=== PATIENT | female | born 1990 | race Caucasian/White ===

== ENCOUNTER 2020-11-08 15:05 | Inpatient (IN) | payer BC ==
[~2020-11-08] VITALS: Ht 170.2 cm; Wt 116.0 kg
--- NOTE | 2020-11-08 18:30 | NUR ---
Patient arrived from [facility] via ambulance and was transferred to hospital bed w/o problem. She is A&O x3, BEAVERS and is appropriate. RT was present to set up Bipap 90% and the patient is sating in the low 90's.
[2020-11-08] MEDS ORDERED: potassium Cl 20 mEq SR tablet PO PRN (18:40)
[2020-11-08] MEDS ORDERED: acetaminophen 325mg tablet PO PRN (18:40)
[2020-11-08] MEDS ORDERED: morphine 4 MG/ML inj SYRINge IV PRN (18:40)
[2020-11-08 18:45] VITALS: BP 100/56
[2020-11-08 19:00] VITALS: BP 141/105
[2020-11-08] MEDS ORDERED: ESCI-8 PO (19:07)
[2020-11-08] MEDS ORDERED: [UNRECOGNIZED DRUG - CODE] PO (19:07)
[2020-11-08] MEDS ORDERED: MONT10TA32 PO (19:07)
[2020-11-08] MEDS ORDERED: DOXE10CA2 PO (19:07)
[2020-11-08] MEDS ORDERED: PROP20TA6 PO (19:07)
[2020-11-08 19:36] LABS: ABG BASE EXCESS 2.9 mmol/L (-2.0-2.0); ABG HCO3 26.1 mmol/L (22.0-26.0); ABG OXYGEN SATURATION 91.5 % (94-97); ABG PCO2 (T) 35.2 mmHg (32.0-45.0); ABG PO2 (T) 56.5 mmHg (75.0-100.0); ALLEN'S TEST POSITIVE; FCOHb 0.1 % (0.0-3.9); FMetHb 0.2 % (0.0-1.5); FO2Hb 91.2 % (94-97); PATIENT TEMPERATURE 36.6; TOTAL HEMOGLOBIN 14.9 G/dl (12.0-16.0)
[2020-11-08 19:59] LABS: BASOPHILS % (AUTO) 0.1 % (0-1); HEMOGLOBIN 14.8 g/dl (12.0-16.0); LYMPHOCYTES # (AUTO) 0.6 X10'3 (1.1-4.8); LYMPHOCYTES % (AUTO) 5.4 % (21-51); MONOCYTES # (AUTO) 0.3 X10'3 (0-0.9); MONOCYTES % (AUTO) 2.7 % (2-12)
[2020-11-08 20:00] VITALS: BP 151/90
[2020-11-08 20:01] LABS: EOSINOPHILS % (AUTO) 0.3 % (0-6); MEAN CORPUSCULAR HEMOGLOBIN 28.6 PG (27.0-31.0); MEAN CORPUSCULAR HGB CONC 33.7 g/dL (33.0-36.5); MEAN CORPUSCULAR VOLUME 84.7 FL (78-98); MEAN PLATELET VOLUME 8.1 FL (7.4-10.4); NEUTROPHILS # (AUTO) 9.8 X10'3 (1.8-7.7); NEUTROPHILS % (AUTO) 91.5 % (42-75); PLATELET COUNT 625 X10'3 (140-440); RED CELL DISTRIBUTION WIDTH 13.2 % (11.5-14.5); WHITE BLOOD COUNT 10.7 X10'3 (4.5-11.0)
[2020-11-08 21:00] VITALS: BP 166/88
[2020-11-08] MEDS ORDERED: dexamethasone 4mg/ml inj IV SCH (21:00)
[2020-11-08] MEDS: dexamethasone 6 MG in NS 50ml IV soln IV SCH (21:30)
[2020-11-08 22:00] VITALS: BP 142/76
[2020-11-08 23:00] VITALS: BP 142/76
[2020-11-09] VITALS (21 sets, daily range): BP systolic 95–171; BP diastolic 37–85
--- NOTE | 2020-11-09 06:17 | NUR ---
Problems reprioritized. Patient report given, questions answered & plan of care reviewed with GISELA Snow.
--- NOTE | 2020-11-09 06:20 | NUR ---
Patient in room CICU 2006. I have received report from Serina HIGGINS and had the opportunity to ask questions and assume patient care.
[2020-11-09 06:24] LABS: BASOPHILS % (AUTO) 0 % (0-1); EOSINOPHILS # (AUTO) 0.1 X10'3 (0-0.9); HEMATOCRIT 40.3 % (35.0-45.0); HEMOGLOBIN 13.5 g/dl (12.0-16.0); LYMPHOCYTES # (AUTO) 0.8 X10'3 (1.1-4.8); LYMPHOCYTES % (AUTO) 6.5 % (21-51); MEAN CORPUSCULAR HEMOGLOBIN 28.5 PG (27.0-31.0); MEAN CORPUSCULAR HGB CONC 33.5 g/dL (33.0-36.5); MEAN PLATELET VOLUME 7.9 FL (7.4-10.4); MONOCYTES # (AUTO) 0.4 X10'3 (0-0.9); MONOCYTES % (AUTO) 3.3 % (2-12); NEUTROPHILS # (AUTO) 11.1 X10'3 (1.8-7.7); NEUTROPHILS % (AUTO) 89.2 % (42-75); PLATELET COUNT 517 X10'3 (140-440); RED BLOOD COUNT 4.74 X10'6 (4.20-5.60); RED CELL DISTRIBUTION WIDTH 13.2 % (11.5-14.5); WHITE BLOOD COUNT 12.4 X10'3 (4.5-11.0)
[2020-11-09 06:36] LABS: ALANINE AMINOTRANSFERASE 43 U/L (12-78); ALBUMIN 2.4 G/DL (3.4-5.0); ALBUMIN/GLOBULIN RATIO 0.6 (1.1-1.5); ALKALINE PHOSPHATASE 63 IU/L (46-116); ANION GAP 7 (8-16); ASPARTATE AMINO TRANSFERASE 16 U/L (10-37); BILIRUBIN,TOTAL 0.5 MG/DL (0.1-1.0); BLOOD UREA NITROGEN 15 MG/DL (7-18); BUN/CREATININE RATIO 23.8 (6.6-38.0); CALCIUM 8.9 MG/DL (8.5-10.1); CHLORIDE 104 MMOL/L (99-107); CREATININE 0.63 MG/DL (0.40-0.90); GLUCOSE 111 MG/DL (70-104); MAGNESIUM 2.8 MG/DL (1.5-2.4); POTASSIUM 4.4 MMOL/L (3.5-5.1); SODIUM 137 MMOL/L (135-145); TOTAL CARBON DIOXIDE 26.2 MMOL/L (24-32); TOTAL PROTEIN 6.6 G/DL (6.4-8.2); eGFR > 90 ML/MIN
[2020-11-09] MEDS: K, MAG and/or Phos replacement - Verify level? MC SCH (08:00)
--- NOTE | 2020-11-09 08:14 | NUR ---
Commode Pt out of bed to commode. O2 sats down to low 80 during process. Assisted back to bed and gradually recovered to high 80s/low 90s.
[2020-11-09] MEDS: dexamethasone 6 MG in NS 50ml IV soln IV SCH ×3 (08:23→19:40)
[2020-11-09 09:13] LABS: PLATELET ESTIMATE INCREASED; TOTAL CELLS COUNTED 100
--- NOTE | 2020-11-09 10:04 | NUR ---
Meal Pt requested protein drink. Ensure provided, she consumed the 250 cc content.
--- NOTE | 2020-11-09 14:00 | NUR ---
Prone Pt got up to commode and returned to bed in prone position per her request. Nicolle RT assisted with proning. Tolerating well. no BP cuff on in prone position at this time. CN aware and agreed as pt is stable.
--- NOTE | 2020-11-09 14:49 | NUR ---
Tube Feed Attempted x [address] corpak unsuccessfully. AMELIE attempted one of those times. Will discuss with . Addendum: 11/09/20 at 1522 by Edy Olmos RN wrong pt
--- NOTE | 2020-11-09 17:56 | NUR ---
Shift note; Pt remains prone at her request. She was up to the commode about 4 PM and then back to bed prone. Phone basket turner provided, comfortable. Did not want ensure drink now but will do it later when up. Seems in good spirits for condition.
[2020-11-09] MEDS: propranolol 10mg tablet PO SCH (19:39)
[2020-11-09] MEDS: lactose-reduced food (Ensure Enlive) - 237ml bottle PO SCH (19:44)
[2020-11-10] VITALS (24 sets, daily range): BP systolic 109–145; BP diastolic 51–92
--- NOTE | 2020-11-10 06:15 | NUR ---
Report given Kvng/RN
[2020-11-10 06:26] LABS: EOSINOPHILS % (AUTO) 0.2 % (0-6); MEAN CORPUSCULAR VOLUME 82.9 FL (78-98); MEAN PLATELET VOLUME 8.2 FL (7.4-10.4); NEUTROPHILS # (AUTO) 12.6 X10'3 (1.8-7.7)
[2020-11-10 06:28] LABS: BASOPHILS # (AUTO) 0.2 X10'3 (0-0.2); BASOPHILS % (AUTO) 1.3 % (0-1); D-DIMER 0.75 MG/L FEU (0-0.50); HEMATOCRIT 40.6 % (35.0-45.0); HEMOGLOBIN 13.8 g/dl (12.0-16.0); MEAN CORPUSCULAR HEMOGLOBIN 28.2 PG (27.0-31.0); MONOCYTES # (AUTO) 0.8 X10'3 (0-0.9); MONOCYTES % (AUTO) 5.2 % (2-12); NEUTROPHILS % (AUTO) 86.3 % (42-75); PLATELET COUNT 624 X10'3 (140-440); RED CELL DISTRIBUTION WIDTH 13.3 % (11.5-14.5); WHITE BLOOD COUNT 14.6 X10'3 (4.5-11.0)
[2020-11-10 06:56] LABS: ALANINE AMINOTRANSFERASE 45 U/L (12-78); ALBUMIN 2.4 G/DL (3.4-5.0); ALBUMIN/GLOBULIN RATIO 0.6 (1.1-1.5); ALKALINE PHOSPHATASE 62 IU/L (46-116); ANION GAP 10 (8-16); ASPARTATE AMINO TRANSFERASE 13 U/L (10-37); BILIRUBIN,TOTAL 0.4 MG/DL (0.1-1.0); BLOOD UREA NITROGEN 16 MG/DL (7-18); BUN/CREATININE RATIO 29.1 (6.6-38.0); CALCIUM 8.9 MG/DL (8.5-10.1); CHLORIDE 102 MMOL/L (99-107); CREATININE 0.55 MG/DL (0.40-0.90); GLUCOSE 113 MG/DL (70-104); POTASSIUM 4.2 MMOL/L (3.5-5.1); SODIUM 139 MMOL/L (135-145); TOTAL CARBON DIOXIDE 26.7 MMOL/L (24-32); TOTAL PROTEIN 6.6 G/DL (6.4-8.2); eGFR > 90 ML/MIN
[2020-11-10] MEDS: NORETHINDRONE ETHINYL ESTRAD PO SCH (08:00)
[2020-11-10] MEDS: montelukast 10mg tablet PO SCH (08:28)
[2020-11-10] MEDS: propranolol 10mg tablet PO SCH ×2 (08:28→20:11)
[2020-11-10] MEDS: ESCITALOPRAM OXALATE 5 MG TABLET PO SCH (08:28)
[2020-11-10] MEDS: dexamethasone 6 MG in NS 50ml IV soln IV SCH ×3 (08:28→20:11)
[2020-11-10] MEDS: enoxaparin 40mg/0.4ml syringe SUBCUT SCH ×2 (08:30→20:11)
[2020-11-10] MEDS: lactose-reduced food (Ensure Enlive) - 237ml bottle PO SCH ×3 (08:40→17:30)
[2020-11-10 10:37] LABS: TOTAL CELLS COUNTED 100
[2020-11-10 10:38] LABS: PLATELET ESTIMATE INCREASED
[2020-11-10 10:39] LABS: LARGE PLATELETS FEW
[2020-11-10 10:43] LABS: TOXIC GRANULATION 1+; TOXIC VACUOLATION FEW
[2020-11-10 10:44] LABS: SMUDGE CELLS FEW
[2020-11-11] VITALS (23 sets, daily range): BP systolic 122–156; BP diastolic 6–90
[2020-11-11] MEDS: morphine 2 MG/ML inj. syringe IV PRN ×4 (03:38→20:13)
[2020-11-11 06:08] LABS: D-DIMER 0.41 MG/L FEU (0-0.50)
[2020-11-11] MEDS: NORETHINDRONE ETHINYL ESTRAD PO SCH (08:00)
[2020-11-11] MEDS: propranolol 10mg tablet PO SCH ×2 (08:09→19:55)
[2020-11-11] MEDS: enoxaparin 40mg/0.4ml syringe SUBCUT SCH ×2 (08:09→19:56)
[2020-11-11] MEDS: lactose-reduced food (Ensure Enlive) - 237ml bottle PO SCH ×3 (08:10→18:06)
[2020-11-11] MEDS: montelukast 10mg tablet PO SCH (08:10)
[2020-11-11] MEDS: dexamethasone 6 MG in NS 50ml IV soln IV SCH ×3 (08:10→20:21)
[2020-11-11] MEDS: ESCITALOPRAM OXALATE 5 MG TABLET PO SCH (08:10)
[2020-11-11] MEDS: K, MAG and/or Phos replacement - Verify level? MC SCH (08:43)
[2020-11-11] MEDS: aspirin 81mg, enteric-coated 1 TAB TABLET.DR PO SCH (13:27)
--- NOTE | 2020-11-11 13:56 | NUR ---
Initial: Pt admit for respiratory distress and COVID PNA, on BiPAP per MD notes. Currently on a full liquid diet and eating poorly with mostly refusing meals though documented to have consumed 75% of dinner 11/10. Pt now receiving Ensure Enlive TID, documented with 100% PO intake of ONS meeting roughly 62% minimum estimated energy needs and 69% minimum estimated protein needs using IBW +10% to calculate estimated nutrient needs given morbid obesity. Limited nutrition interventions a this time given current diet order. LBM 11/07 with PRN bowel care available. D/w dietary to send prune juice with next meal to assist with bowel regularity. Will continue to follow closely and make recommendations as appropriate. Recommendations: 1) Advance to regular diet as medically indicated 2) Ensure Enlive TID 3) Consider supplemental EN if unable to advance PO diet and/or PO intake of meals does not improve 4) Routine bowel care 5) Weekly scaled weights Addendum: 11/11/20 at [address] Amended: Links added.
[2020-11-12] VITALS (24 sets, daily range): BP systolic 79–154; BP diastolic 52–77
[2020-11-12 06:29] LABS: D-DIMER 0.32 MG/L FEU (0-0.50)
[2020-11-12] MEDS: K, MAG and/or Phos replacement - Verify level? MC SCH (08:00)
[2020-11-12] MEDS: dexamethasone 6 MG in NS 50ml IV soln IV SCH ×3 (08:39→20:47)
[2020-11-12] MEDS: aspirin 81mg, enteric-coated 1 TAB TABLET.DR PO SCH (08:39)
[2020-11-12] MEDS: lactose-reduced food (Ensure Enlive) - 237ml bottle PO SCH ×3 (08:39→18:00)
[2020-11-12] MEDS: enoxaparin 40mg/0.4ml syringe SUBCUT SCH ×2 (08:39→20:25)
[2020-11-12] MEDS ORDERED: DEXMEDETOMIDINE 400MCG in NORMAL SALINE 100ml IV SCH (11:50)
[2020-11-12] MEDS: dexmedetomidine/D5W 100mL 100 ML IV SCH ×2 (13:42→21:36)
--- NOTE | 2020-11-12 18:20 | NUR ---
Patient in room CICU 2006. I have received report from GISELA Calderon and had the opportunity to ask questions and assume patient care.
[2020-11-13] VITALS (24 sets, daily range): BP systolic 102–139; BP diastolic 50–81
[2020-11-13] MEDS: ondansetron/PF 4mg/2ml inj IV PRN (00:23)
[2020-11-13] MEDS: magnesium hydroxide 30ml (MOM) UD suspension PO PRN (02:15)
[2020-11-13] MEDS: dexmedetomidine/D5W 100mL 100 ML IV SCH ×4 (04:50→19:14)
--- NOTE | 2020-11-13 05:00 | NUR ---
Patient in bed resting quietly, c/o heartburn meds was given as ordered tolerated well. Able to repositioned self in bed. Use bed commode X2 during the night. Drink water. IV ABT in progress, no adverse reaction noted. Safety measures and comfort maintained. Will continue to monitor.
--- NOTE | 2020-11-13 06:33 | NUR ---
Problems reprioritized. Patient report given, questions answered & plan of care reviewed with GISELA Churchill.
[2020-11-13 07:03] LABS: D-DIMER 0.28 MG/L FEU (0-0.50)
[2020-11-13 07:30] LABS: C-REACTIVE PROTEIN 0.75 MG/DL (0.0-0.5)
[2020-11-13] MEDS: K, MAG and/or Phos replacement - Verify level? MC SCH (08:00)
[2020-11-13] MEDS: enoxaparin 40mg/0.4ml syringe SUBCUT SCH ×2 (08:35→19:15)
[2020-11-13] MEDS: dexamethasone 6 MG in NS 50ml IV soln IV SCH ×3 (08:35→20:00)
[2020-11-13] MEDS: aspirin 81mg, enteric-coated 1 TAB TABLET.DR PO SCH (08:36)
[2020-11-13] MEDS: lactose-reduced food (Ensure Enlive) - 237ml bottle PO SCH ×3 (08:36→18:00)
[2020-11-13 09:29] LABS: BASOPHILS # (AUTO) 0.2 X10'3 (0-0.2); EOSINOPHILS % (AUTO) 0 % (0-6); HEMATOCRIT 42.1 % (35.0-45.0); HEMOGLOBIN 14.2 g/dl (12.0-16.0); LYMPHOCYTES # (AUTO) 1.2 X10'3 (1.1-4.8); LYMPHOCYTES % (AUTO) 7.4 % (21-51); MEAN CORPUSCULAR HEMOGLOBIN 28.4 PG (27.0-31.0); MEAN CORPUSCULAR HGB CONC 33.8 g/dL (33.0-36.5); MEAN CORPUSCULAR VOLUME 83.9 FL (78-98); MEAN PLATELET VOLUME 8.8 FL (7.4-10.4); MONOCYTES # (AUTO) 0.9 X10'3 (0-0.9); MONOCYTES % (AUTO) 5.1 % (2-12); NEUTROPHILS # (AUTO) 14.4 X10'3 (1.8-7.7); NEUTROPHILS % (AUTO) 86.5 % (42-75); PLATELET COUNT 530 X10'3 (140-440); RED BLOOD COUNT 5.02 X10'6 (4.20-5.60); RED CELL DISTRIBUTION WIDTH 13.3 % (11.5-14.5); WHITE BLOOD COUNT 16.7 X10'3 (4.5-11.0)
[2020-11-13 09:49] LABS: ALANINE AMINOTRANSFERASE 54 U/L (12-78); ALBUMIN 2.8 G/DL (3.4-5.0); ALBUMIN/GLOBULIN RATIO 0.7 (1.1-1.5); ALKALINE PHOSPHATASE 65 IU/L (46-116); ANION GAP 12 (8-16); ASPARTATE AMINO TRANSFERASE 12 U/L (10-37); BILIRUBIN,TOTAL 0.6 MG/DL (0.1-1.0); BLOOD UREA NITROGEN 23 MG/DL (7-18); BUN/CREATININE RATIO 36.5 (6.6-38.0); CHLORIDE 104 MMOL/L (99-107); CREATININE 0.63 MG/DL (0.40-0.90); GLUCOSE 117 MG/DL (70-104); POTASSIUM 4.6 MMOL/L (3.5-5.1); SODIUM 142 MMOL/L (135-145); TOTAL CARBON DIOXIDE 25.9 MMOL/L (24-32); TOTAL PROTEIN 6.7 G/DL (6.4-8.2); eGFR > 90 ML/MIN
--- NOTE | 2020-11-13 10:32 | NUR ---
pt up to bsc she desat to 63 on 85%. fio2 increased to 100% with activity. fio2 titrated down to 90% for recovery
[2020-11-13 12:10] LABS: PLATELET ESTIMATE INCREASED; TOTAL CELLS COUNTED 100
[2020-11-13 12:11] LABS: BURR CELLS FEW
--- NOTE | 2020-11-13 13:21 | NUR ---
pt sat up in chair for approx 1.5 hours and ate lunch. pt assisted back to bed stand by assist
--- NOTE | 2020-11-13 18:15 | NUR ---
Patient in room CICU 2006. I have received report from Kerline HIGGINS and had the opportunity to ask questions and assume patient care.
[2020-11-13] MEDS: polyethylene glycol 3350 17gm powd pack PO SCH (20:00)
[2020-11-14] VITALS (24 sets, daily range): BP systolic 101–141; BP diastolic 27–85
[2020-11-14] MEDS: acetaminophen 325mg tablet PO PRN (02:04)
[2020-11-14] MEDS ORDERED: pantoprazole 40 MG vial IV ONE (02:30)
--- NOTE | 2020-11-14 02:30 | NUR ---
Patient complaints of heartburn, called to Dr. De Luna regarding to patient's condition. Dr. De Luna gave a telephone order of one time does 40mg of Protonix IV.
[2020-11-14] MEDS ORDERED: mag hydrox/Alum hydrox/simeth 30ml oral suspension PO PRN (04:00)
[2020-11-14] MEDS: dexmedetomidine/D5W 100mL 100 ML IV SCH ×3 (05:04→20:21)
--- NOTE | 2020-11-14 06:24 | NUR ---
Problems reprioritized. Patient report given, questions answered & plan of care reviewed with Kaleigh HIGGINS at bedside.
[2020-11-14 07:07] LABS: HEMATOCRIT 42.3 % (35.0-45.0); HEMOGLOBIN 14.3 g/dl (12.0-16.0); MEAN CORPUSCULAR HGB CONC 33.7 g/dL (33.0-36.5); WHITE BLOOD COUNT 19.1 X10'3 (4.5-11.0)
[2020-11-14 07:09] LABS: BASOPHILS % (AUTO) 0.2 % (0-1); EOSINOPHILS % (AUTO) 0 % (0-6); LYMPHOCYTES # (AUTO) 1.1 X10'3 (1.1-4.8); LYMPHOCYTES % (AUTO) 5.5 % (21-51); MEAN CORPUSCULAR VOLUME 83.2 FL (78-98); MEAN PLATELET VOLUME 9.1 FL (7.4-10.4); MONOCYTES # (AUTO) 1.1 X10'3 (0-0.9); MONOCYTES % (AUTO) 5.6 % (2-12); NEUTROPHILS # (AUTO) 16.9 X10'3 (1.8-7.7); NEUTROPHILS % (AUTO) 88.7 % (42-75); PLATELET COUNT 459 X10'3 (140-440); RED BLOOD COUNT 5.08 X10'6 (4.20-5.60); RED CELL DISTRIBUTION WIDTH 13.2 % (11.5-14.5)
[2020-11-14] MEDS: lactose-reduced food (Ensure Enlive) - 237ml bottle PO SCH ×3 (08:00→18:52)
[2020-11-14] MEDS: K, MAG and/or Phos replacement - Verify level? MC SCH (08:00)
[2020-11-14 08:12] LABS: ALANINE AMINOTRANSFERASE 65 U/L (12-78); ALBUMIN 2.7 G/DL (3.4-5.0); ALBUMIN/GLOBULIN RATIO 0.7 (1.1-1.5); ALKALINE PHOSPHATASE 64 IU/L (46-116); ANION GAP 11 (8-16); ASPARTATE AMINO TRANSFERASE 20 U/L (10-37); BILIRUBIN,TOTAL 0.5 MG/DL (0.1-1.0); BLOOD UREA NITROGEN 22 MG/DL (7-18); BUN/CREATININE RATIO 34.4 (6.6-38.0); CALCIUM 8.7 MG/DL (8.5-10.1); CHLORIDE 102 MMOL/L (99-107); CREATININE 0.64 MG/DL (0.40-0.90); GLUCOSE 117 MG/DL (70-104); POTASSIUM 4.4 MMOL/L (3.5-5.1); SODIUM 138 MMOL/L (135-145); TOTAL CARBON DIOXIDE 25.5 MMOL/L (24-32); TOTAL PROTEIN 6.5 G/DL (6.4-8.2); eGFR > 90 ML/MIN
--- NOTE | 2020-11-14 08:19 | NUR ---
Reassessment: Pt remains on BiPAP and Full liquid diet, continues w/ poor PO intake. Avg 25% x 7 meals and 65% x 8 ONS not meeting needs. Pt may benefit from supplemental EN feeding if unable to advance diet. Limited nutrition interventions a this time given current diet order. LB 11/07 receiving routine and PRN bowel care. Pt also noted to be complaining of heartburn. Will continue to follow closely and make recommendations as appropriate. Recommendations: 1) Advance to regular diet as medically indicated 2) Ensure Enlive TID 3) Consider supplemental EN if unable to advance PO diet and/or PO intake of meals does not improve 4) Routine bowel care 5) Weekly scaled weights Addendum: 11/14/20 at [address] Amended: Links added.
[2020-11-14 08:39] LABS: PLATELET ESTIMATE INCREASED; TOTAL CELLS COUNTED 100
[2020-11-14 08:53] LABS: D-DIMER 0.46 MG/L FEU (0-0.50)
[2020-11-14] MEDS: aspirin 81mg, enteric-coated 1 TAB TABLET.DR PO SCH (08:58)
[2020-11-14] MEDS: dexamethasone 6 MG in NS 50ml IV soln IV SCH ×3 (09:06→20:21)
[2020-11-14] MEDS: enoxaparin 40mg/0.4ml syringe SUBCUT SCH ×2 (09:06→19:56)
[2020-11-14 13:13] LABS: ABG BASE EXCESS 0.1 mmol/L (-2.0-2.0); ABG HCO3 22.2 mmol/L (22.0-26.0); ABG OXYGEN SATURATION 92.3 % (94-97); ABG PCO2 (T) 29.5 mmHg (32.0-45.0); ABG PO2 (T) 61.7 mmHg (75.0-100.0); ALLEN'S TEST POSITIVE; FMetHb 0.3 % (0.0-1.5); PATIENT TEMPERATURE 36.8; RESPIRATORY RATE 12 b/min; TOTAL HEMOGLOBIN 15.7 G/dl (12.0-16.0)
[2020-11-14] MEDS: polyethylene glycol 3350 17gm powd pack PO SCH (20:20)
[2020-11-15] VITALS (24 sets, daily range): BP systolic 98–152; BP diastolic 61–86
[2020-11-15] MEDS: dexmedetomidine/D5W 100mL 100 ML IV SCH ×4 (03:02→19:10)
[2020-11-15] MEDS: lactose-reduced food (Ensure Enlive) - 237ml bottle PO SCH ×3 (08:00→18:00)
[2020-11-15] MEDS: K, MAG and/or Phos replacement - Verify level? MC SCH (08:00)
[2020-11-15] MEDS: aspirin 81mg, enteric-coated 1 TAB TABLET.DR PO SCH (08:00)
[2020-11-15] MEDS: dexamethasone 6 MG in NS 50ml IV soln IV SCH ×3 (08:17→20:12)
[2020-11-15] MEDS: enoxaparin 40mg/0.4ml syringe SUBCUT SCH ×2 (08:18→19:10)
[2020-11-15 08:46] LABS: ABG BASE EXCESS 1.4 mmol/L (-2.0-2.0); ABG HCO3 23.6 mmol/L (22.0-26.0); ABG OXYGEN SATURATION 84.6 % (94-97); ABG PCO2 (T) 30.1 mmHg (32.0-45.0); ABG PO2 (T) 44.5 mmHg (75.0-100.0); ALLEN'S TEST POSITIVE; FCOHb 0.2 % (0.0-3.9); FMetHb 0.2 % (0.0-1.5); FO2Hb 84.3 % (94-97); PATIENT TEMPERATURE 36.3; RESPIRATORY RATE 12 b/min; TIDAL VOLUME 684 mL; TOTAL HEMOGLOBIN 15.8 G/dl (12.0-16.0)
[2020-11-15 09:17] LABS: BASOPHILS # (AUTO) 0.1 X10'3 (0-0.2); BASOPHILS % (AUTO) 0.2 % (0-1); EOSINOPHILS # (AUTO) 0.1 X10'3 (0-0.9); EOSINOPHILS % (AUTO) 0.2 % (0-6); HEMATOCRIT 45.2 % (35.0-45.0); HEMOGLOBIN 14.9 g/dl (12.0-16.0); LYMPHOCYTES # (AUTO) 1.4 X10'3 (1.1-4.8); LYMPHOCYTES % (AUTO) 5.5 % (21-51); MEAN CORPUSCULAR HEMOGLOBIN 27.8 PG (27.0-31.0); MEAN CORPUSCULAR HGB CONC 33.1 g/dL (33.0-36.5); MEAN PLATELET VOLUME 8.7 FL (7.4-10.4); MONOCYTES # (AUTO) 1.8 X10'3 (0-0.9); MONOCYTES % (AUTO) 7.4 % (2-12); NEUTROPHILS # (AUTO) 21.5 X10'3 (1.8-7.7); NEUTROPHILS % (AUTO) 86.7 % (42-75); PLATELET COUNT 459 X10'3 (140-440); RED BLOOD COUNT 5.38 X10'6 (4.20-5.60); RED CELL DISTRIBUTION WIDTH 13.1 % (11.5-14.5); WHITE BLOOD COUNT 24.8 X10'3 (4.5-11.0)
[2020-11-15 09:26] LABS: ALANINE AMINOTRANSFERASE 89 U/L (12-78); ALBUMIN 2.6 G/DL (3.4-5.0); ALBUMIN/GLOBULIN RATIO 0.6 (1.1-1.5); ALKALINE PHOSPHATASE 73 IU/L (46-116); ANION GAP 12 (8-16); ASPARTATE AMINO TRANSFERASE 24 U/L (10-37); BILIRUBIN,TOTAL 0.8 MG/DL (0.1-1.0); BLOOD UREA NITROGEN 22 MG/DL (7-18); BUN/CREATININE RATIO 32.8 (6.6-38.0); CALCIUM 8.5 MG/DL (8.5-10.1); CHLORIDE 103 MMOL/L (99-107); CREATININE 0.67 MG/DL (0.40-0.90); GLUCOSE 97 MG/DL (70-104); MAGNESIUM 2.3 MG/DL (1.5-2.4); PHOSPHORUS 4.9 MG/DL (2.3-4.5); POTASSIUM 4.1 MMOL/L (3.5-5.1); SODIUM 139 MMOL/L (135-145); TOTAL CARBON DIOXIDE 24.3 MMOL/L (24-32); TOTAL PROTEIN 6.7 G/DL (6.4-8.2); eGFR > 90 ML/MIN
[2020-11-15] MEDS: LORazepam 2 mg/ml vial IV PRN ×2 (11:03→20:12)
[2020-11-15] MEDS ORDERED: magnesium citrate 296ml oral solution PO ONE (11:40)
[2020-11-15] MEDS ORDERED: TOCILIZUMAB 200mg/10ml inj. 800 MG in normal saline 100ml IV soln 60 ML IV ONE (11:50)
[2020-11-15] MEDS: lactulose 20gm/30ml cup PO SCH ×2 (14:00→19:14)
--- NOTE | 2020-11-15 15:48 | NUR ---
MAG CITRATE NOT GIVEN AT THIS TIME PT SUPINE ON BIPAP AND TOO SHORT OF BREATH WHEN MASK OFF
--- NOTE | 2020-11-15 18:30 | NUR ---
Patient in room ICU 2044. I have received report from Hyun HIGGINS and had the opportunity to ask questions and assume patient care.
[2020-11-15] MEDS: polyethylene glycol 3350 17gm powd pack PO SCH (21:00)
[2020-11-16] VITALS (24 sets, daily range): BP systolic 101–169; BP diastolic 64–97
[2020-11-16] MEDS: dexmedetomidine/D5W 100mL 100 ML IV SCH ×2 (00:49→18:32)
[2020-11-16] MEDS: lactulose 20gm/30ml cup PO SCH ×4 (02:00→21:04)
--- NOTE | 2020-11-16 06:21 | NUR ---
Problems reprioritized. Patient report given to Mariah HIGGINS, questions answered & plan of care reviewed with .
--- NOTE | 2020-11-16 06:30 | NUR ---
Received report from GISELA Boyer
[2020-11-16 06:35] LABS: D-DIMER 0.49 MG/L FEU (0-0.50)
[2020-11-16] MEDS: K, MAG and/or Phos replacement - Verify level? MC SCH (08:00)
[2020-11-16] MEDS: LORazepam 2 mg/ml vial IV PRN ×2 (08:37→16:39)
[2020-11-16 08:47] LABS: ALANINE AMINOTRANSFERASE 125 U/L (12-78); ALBUMIN 2.9 G/DL (3.4-5.0); ALBUMIN/GLOBULIN RATIO 0.6 (1.1-1.5); ALKALINE PHOSPHATASE 82 IU/L (46-116); ANION GAP 8 (8-16); ASPARTATE AMINO TRANSFERASE 26 U/L (10-37); BILIRUBIN,TOTAL 1.2 MG/DL (0.1-1.0); BLOOD UREA NITROGEN 26 MG/DL (7-18); BUN/CREATININE RATIO 34.7 (6.6-38.0); CHLORIDE 103 MMOL/L (99-107); CREATININE 0.75 MG/DL (0.40-0.90); EOSINOPHILS # (AUTO) 0.1 X10'3 (0-0.9); EOSINOPHILS % (AUTO) 0.6 % (0-6); GLUCOSE 98 MG/DL (70-104); MAGNESIUM 2.7 MG/DL (1.5-2.4); MONOCYTES # (AUTO) 1.3 X10'3 (0-0.9); PHOSPHORUS 5.7 MG/DL (2.3-4.5); POTASSIUM 4.6 MMOL/L (3.5-5.1); SODIUM 138 MMOL/L (135-145); TOTAL CARBON DIOXIDE 27.4 MMOL/L (24-32); TOTAL PROTEIN 7.4 G/DL (6.4-8.2); eGFR 90 ML/MIN
[2020-11-16 08:49] LABS: BASOPHILS % (AUTO) 0.2 % (0-1); HEMATOCRIT 47.6 % (35.0-45.0); HEMOGLOBIN 15.7 g/dl (12.0-16.0); LYMPHOCYTES # (AUTO) 1.5 X10'3 (1.1-4.8); LYMPHOCYTES % (AUTO) 7.7 % (21-51); MEAN CORPUSCULAR HEMOGLOBIN 27.7 PG (27.0-31.0); MEAN CORPUSCULAR HGB CONC 32.9 g/dL (33.0-36.5); MEAN CORPUSCULAR VOLUME 84.1 FL (78-98); MEAN PLATELET VOLUME 8.9 FL (7.4-10.4); MONOCYTES % (AUTO) 6.7 % (2-12); NEUTROPHILS % (AUTO) 84.8 % (42-75); PLATELET COUNT 465 X10'3 (140-440); RED BLOOD COUNT 5.66 X10'6 (4.20-5.60); RED CELL DISTRIBUTION WIDTH 13.2 % (11.5-14.5)
[2020-11-16] MEDS: dexamethasone 6 MG in NS 50ml IV soln IV SCH ×3 (09:04→21:04)
[2020-11-16 10:11] LABS: TOTAL CELLS COUNTED 100
[2020-11-16 10:12] LABS: IMMATURE CELLS 0 % (0-0)
[2020-11-16 10:14] LABS: PLATELET ESTIMATE NORMAL
[2020-11-16] MEDS ORDERED: furosemide 40mg/4ml inj IV ONE (11:15)
--- NOTE | 2020-11-16 11:26 | NUR ---
f/u 11/16: Per RN, failed corpak placement 11/15, pt desats quickly. Pt refusing mostly all meals and consumes 60% x 7 last documented ONS which meets 37% of est energy needs and 41% of est protein needs. Plating Machine Operator would like more Ensure for pt, see updated recs. Will continue to monitor. Reassessment: Pt remains on BiPAP and Full liquid diet, continues w/ poor PO intake. Avg 25% x 7 meals and 65% x 8 ONS not meeting needs. Pt may benefit from supplemental EN feeding if unable to advance diet. Limited nutrition interventions a this time given current diet order. LBM 11/07 receiving routine and PRN bowel care. Pt also noted to be complaining of heartburn. Will continue to follow closely and make recommendations as appropriate. Recommendations: 1) Advance to regular diet as medically indicated 2) Ensure Enlive QID 3) Consider supplemental EN if unable to advance PO diet and/or PO intake of meals does not improve 4) Routine bowel care 5) Weekly scaled weights Addendum: 11/16/20 at [address] Amended: Links added.
[2020-11-16] MEDS: lactose-reduced food (Ensure Enlive) - 237ml bottle PO SCH ×3 (11:40→21:04)
[2020-11-16] MEDS: magnesium hydroxide 30ml (MOM) UD suspension PO PRN (11:41)
[2020-11-16] MEDS: enoxaparin 40mg/0.4ml syringe SUBCUT SCH ×2 (11:41→21:04)
[2020-11-16] MEDS: acetaminophen 325mg tablet PO PRN (11:44)
[2020-11-16] MEDS: cholecalciferol (vitamin D3) 1,000 unit (25mcg) tablet PO SCH (16:15)
[2020-11-16] MEDS: sevelamer carbonate 0.8gm powder pkt PO SCH ×2 (16:15→17:30)
--- NOTE | 2020-11-16 18:30 | NUR ---
Patient in room ICU 2044. I have received report from Mariah HIGGINS and had the opportunity to ask questions and assume patient care.
--- NOTE | 2020-11-16 18:35 | NUR ---
Report given to GISELA Boyer.
--- NOTE | 2020-11-16 22:00 | NUR ---
Patient in room ICU 2044. I have received report from Ayanna HIGGINS and had the opportunity to ask questions and assume patient care. Patient breathing even and unlabored while prone on 140L [place] at 100% fio2.
--- NOTE | 2020-11-16 22:05 | NUR ---
Problems reprioritized. Patient report given, questions answered & plan of care reviewed with GISELA Rico.
[2020-11-17] VITALS (23 sets, daily range): BP systolic 101–130; BP diastolic 53–89
[2020-11-17] MEDS: ondansetron/PF 4mg/2ml inj IV PRN (02:11)
[2020-11-17] MEDS: acetaminophen 325mg tablet PO PRN (02:12)
[2020-11-17] MEDS: lactulose 20gm/30ml cup PO SCH ×4 (03:32→19:51)
[2020-11-17 06:07] LABS: BASOPHILS # (AUTO) 0.1 X10'3 (0-0.2); BASOPHILS % (AUTO) 0.4 % (0-1); EOSINOPHILS # (AUTO) 0.1 X10'3 (0-0.9); EOSINOPHILS % (AUTO) 0.3 % (0-6); HEMATOCRIT 50.5 % (35.0-45.0); HEMOGLOBIN 16.6 g/dl (12.0-16.0); LYMPHOCYTES # (AUTO) 1.3 X10'3 (1.1-4.8); LYMPHOCYTES % (AUTO) 5.7 % (21-51); MEAN CORPUSCULAR HEMOGLOBIN 27.9 PG (27.0-31.0); MEAN CORPUSCULAR HGB CONC 32.9 g/dL (33.0-36.5); MEAN CORPUSCULAR VOLUME 84.8 FL (78-98); MEAN PLATELET VOLUME 9.7 FL (7.4-10.4); MONOCYTES % (AUTO) 4.3 % (2-12); NEUTROPHILS % (AUTO) 89.3 % (42-75); PLATELET COUNT 419 X10'3 (140-440); RED BLOOD COUNT 5.95 X10'6 (4.20-5.60); RED CELL DISTRIBUTION WIDTH 13.5 % (11.5-14.5); WHITE BLOOD COUNT 22.4 X10'3 (4.5-11.0)
[2020-11-17 06:37] LABS: ALANINE AMINOTRANSFERASE 258 U/L (12-78); ALBUMIN 2.9 G/DL (3.4-5.0); ALBUMIN/GLOBULIN RATIO 0.7 (1.1-1.5); ALKALINE PHOSPHATASE 113 IU/L (46-116); ANION GAP 10 (8-16); ASPARTATE AMINO TRANSFERASE 24 U/L (10-37); BILIRUBIN,TOTAL 0.7 MG/DL (0.1-1.0); BLOOD UREA NITROGEN 34 MG/DL (7-18); CALCIUM 9.2 MG/DL (8.5-10.1); CHLORIDE 104 MMOL/L (99-107); CREATININE 0.68 MG/DL (0.40-0.90); GLUCOSE 140 MG/DL (70-104); POTASSIUM 4.7 MMOL/L (3.5-5.1); SODIUM 138 MMOL/L (135-145); TOTAL CARBON DIOXIDE 23.7 MMOL/L (24-32); TOTAL PROTEIN 7.2 G/DL (6.4-8.2); eGFR > 90 ML/MIN
[2020-11-17] MEDS: K, MAG and/or Phos replacement - Verify level? MC SCH (08:00)
[2020-11-17] MEDS: lactose-reduced food (Ensure Enlive) - 237ml bottle PO SCH ×4 (08:00→21:00)
[2020-11-17] MEDS: enoxaparin 40mg/0.4ml syringe SUBCUT SCH ×2 (08:50→19:51)
[2020-11-17] MEDS: cholecalciferol (vitamin D3) 1,000 unit (25mcg) tablet PO SCH (08:50)
[2020-11-17] MEDS: aspirin 81mg, enteric-coated 1 TAB TABLET.DR PO SCH (08:50)
[2020-11-17] MEDS: dexamethasone 6 MG in NS 50ml IV soln IV SCH ×3 (08:51→19:49)
[2020-11-17] MEDS: sevelamer carbonate 0.8gm powder pkt PO SCH ×3 (08:52→17:46)
[2020-11-17 08:57] LABS: C-REACTIVE PROTEIN 3.85 MG/DL (0.0-0.5)
[2020-11-17 09:13] LABS: PHOSPHORUS 4.7 MG/DL (2.3-4.5)
[2020-11-17] MEDS: dexmedetomidine/D5W 100mL 100 ML IV SCH ×2 (10:36→19:42)
--- NOTE | 2020-11-17 10:51 | NUR ---
F/u 11/17: Pt PO 100% ensures QID per MD and 100% PO full liquid breakfast this AM per RN best PO so far this admit partially meeting needs given restrictive diet and prior poor PO hx. Pt did have BM last night and this AM per RN; following prior 10 days constipation. Constipation resolution likely impacting PO trends; continues to prone on 40L high flow per EMR. Phos down to 4.7 from 5.7 prior receiving renvela. Will continue to monitor for diet advancement and PO/ONS tolerance. Recommendations: 1) Advance to regular diet as medically indicated; encourage PO 2) Ensure Enlive QID per MD 3) Phos binder w/ meals per MD 4) Routine bowel care; prior 10 days constipation currently resolving 5) Weekly scaled weights Addendum: 11/17/20 at [address] Amended: Links added.
--- NOTE | 2020-11-17 15:21 | NUR ---
-Pt VS stable, AAOx4, Call light within reach, encouraged pt to call for assistance, -Proned x2 for 3 hours each ; Semi Fowlers for meals, Toileting and Incentive Spirometer -Pt had 2 small liquid stools, consumed 100% of full liquid diet, plus snacks and Ensure.
[2020-11-18] VITALS (15 sets, daily range): BP systolic 103–159; BP diastolic 61–102
[2020-11-18] MEDS: lactulose 20gm/30ml cup PO SCH ×4 (02:00→19:20)
[2020-11-18] MEDS: dexmedetomidine/D5W 100mL 100 ML IV SCH (03:34)
[2020-11-18] MEDS: K, MAG and/or Phos replacement - Verify level? MC SCH (08:00)
[2020-11-18] MEDS: dexamethasone 6 MG in NS 50ml IV soln IV SCH (08:55)
[2020-11-18] MEDS: aspirin 81mg, enteric-coated 1 TAB TABLET.DR PO SCH (08:56)
[2020-11-18] MEDS: cholecalciferol (vitamin D3) 1,000 unit (25mcg) tablet PO SCH (08:56)
[2020-11-18] MEDS: sevelamer carbonate 0.8gm powder pkt PO SCH ×3 (08:56→17:17)
[2020-11-18] MEDS: enoxaparin 40mg/0.4ml syringe SUBCUT SCH ×2 (08:56→19:20)
[2020-11-18] MEDS: lactose-reduced food (Ensure Enlive) - 237ml bottle PO SCH ×4 (08:56→21:00)
[2020-11-18 11:31] LABS: BASOPHILS # (AUTO) 0.1 X10'3 (0-0.2); BASOPHILS % (AUTO) 0.4 % (0-1); EOSINOPHILS # (AUTO) 0.4 X10'3 (0-0.9); EOSINOPHILS % (AUTO) 1.6 % (0-6); HEMATOCRIT 49.2 % (35.0-45.0); HEMOGLOBIN 16.4 g/dl (12.0-16.0); LYMPHOCYTES # (AUTO) 1.5 X10'3 (1.1-4.8); LYMPHOCYTES % (AUTO) 5.8 % (21-51); MEAN CORPUSCULAR HEMOGLOBIN 28.2 PG (27.0-31.0); MEAN CORPUSCULAR HGB CONC 33.4 g/dL (33.0-36.5); MEAN CORPUSCULAR VOLUME 84.5 FL (78-98); MEAN PLATELET VOLUME 9.3 FL (7.4-10.4); MONOCYTES # (AUTO) 0.9 X10'3 (0-0.9); MONOCYTES % (AUTO) 3.5 % (2-12); NEUTROPHILS # (AUTO) 23.1 X10'3 (1.8-7.7); NEUTROPHILS % (AUTO) 88.7 % (42-75); PLATELET COUNT 357 X10'3 (140-440); RED BLOOD COUNT 5.82 X10'6 (4.20-5.60); RED CELL DISTRIBUTION WIDTH 13.6 % (11.5-14.5)
[2020-11-18] MEDS: pantoprazole 40 MG vial IV SCH (11:57)
[2020-11-18 12:08] LABS: PLATELET ESTIMATE NORMAL; TOTAL CELLS COUNTED 100
--- NOTE | 2020-11-18 12:09 | NUR ---
F/u 11/18: Pt PO two of four ensures yesterday overall avg ~600kcals past 11 days up to ~1100 kcals on days when had three ensures not meeting needs. MD aware of poor PO intake and pt diet to advance to carb controlled to ensure Glu control on steroids per renewable energy project manager. Given 11 days inadequate intake in addition to general +2 edema pt meets minimum malnutrition criteria; MD notified. Addendum: 11/18/20 at [address] Amended: Links added.
[2020-11-18] MEDS: dexamethasone inj 5 MG in normal saline 50ml IV soln 50 ML IV SCH ×2 (13:26→19:39)
[2020-11-18 13:28] LABS: ALANINE AMINOTRANSFERASE 152 U/L (12-78); ALBUMIN 2.9 G/DL (3.4-5.0); ALBUMIN/GLOBULIN RATIO 0.7 (1.1-1.5); ALKALINE PHOSPHATASE 96 IU/L (46-116); ANION GAP 10 (8-16); ASPARTATE AMINO TRANSFERASE 16 U/L (10-37); BILIRUBIN,TOTAL 0.6 MG/DL (0.1-1.0); BLOOD UREA NITROGEN 26 MG/DL (7-18); BUN/CREATININE RATIO 38.8 (6.6-38.0); CALCIUM 8.8 MG/DL (8.5-10.1); CHLORIDE 103 MMOL/L (99-107); CREATININE 0.67 MG/DL (0.40-0.90); GLUCOSE 132 MG/DL (70-104); MAGNESIUM 2.5 MG/DL (1.5-2.4); PHOSPHORUS 2.9 MG/DL (2.3-4.5); POTASSIUM 4.2 MMOL/L (3.5-5.1); SODIUM 140 MMOL/L (135-145); TOTAL CARBON DIOXIDE 27.3 MMOL/L (24-32); TOTAL PROTEIN 6.9 G/DL (6.4-8.2); eGFR > 90 ML/MIN
[2020-11-18] MEDS: LORazepam 2 mg/ml vial IV PRN ×2 (14:12→19:49)
[2020-11-18] MEDS: magnesium hydroxide 30ml (MOM) UD suspension PO PRN (14:18)
[2020-11-18] MEDS: Melatonin 3mg tablet PO PRN (21:38)
[2020-11-19] VITALS (23 sets, daily range): BP systolic 109–160; BP diastolic 61–101
[2020-11-19] MEDS: LORazepam 2 mg/ml vial IV PRN ×3 (00:11→10:44)
[2020-11-19] MEDS: lactulose 20gm/30ml cup PO SCH ×5 (02:00→21:16)
[2020-11-19] MEDS: dexmedetomidine/D5W 100mL 100 ML IV SCH ×4 (06:19→22:13)
[2020-11-19 06:25] LABS: BASOPHILS # (AUTO) 0.2 X10'3 (0-0.2); BASOPHILS % (AUTO) 0.6 % (0-1); EOSINOPHILS # (AUTO) 0.1 X10'3 (0-0.9); EOSINOPHILS % (AUTO) 0.4 % (0-6); HEMATOCRIT 49.7 % (35.0-45.0); HEMOGLOBIN 16.7 g/dl (12.0-16.0); LYMPHOCYTES # (AUTO) 1.8 X10'3 (1.1-4.8); MEAN CORPUSCULAR HEMOGLOBIN 28.5 PG (27.0-31.0); MEAN CORPUSCULAR HGB CONC 33.7 g/dL (33.0-36.5); MEAN CORPUSCULAR VOLUME 84.5 FL (78-98); MONOCYTES # (AUTO) 1.4 X10'3 (0-0.9); MONOCYTES % (AUTO) 4.6 % (2-12); NEUTROPHILS # (AUTO) 26.5 X10'3 (1.8-7.7); NEUTROPHILS % (AUTO) 88.4 % (42-75); PLATELET COUNT 355 X10'3 (140-440); RED BLOOD COUNT 5.88 X10'6 (4.20-5.60); RED CELL DISTRIBUTION WIDTH 13.7 % (11.5-14.5)
[2020-11-19 06:43] LABS: ALANINE AMINOTRANSFERASE 120 U/L (12-78); ALBUMIN 3.3 G/DL (3.4-5.0); ALBUMIN/GLOBULIN RATIO 0.8 (1.1-1.5); ALKALINE PHOSPHATASE 95 IU/L (46-116); ANION GAP 13 (8-16); ASPARTATE AMINO TRANSFERASE 14 U/L (10-37); BLOOD UREA NITROGEN 24 MG/DL (7-18); CALCIUM 9.2 MG/DL (8.5-10.1); CHLORIDE 103 MMOL/L (99-107); GLUCOSE 124 MG/DL (70-104); POTASSIUM 4.5 MMOL/L (3.5-5.1); SODIUM 142 MMOL/L (135-145); TOTAL CARBON DIOXIDE 25.6 MMOL/L (24-32); TOTAL PROTEIN 7.3 G/DL (6.4-8.2); eGFR > 90 ML/MIN
[2020-11-19 06:44] LABS: PHOSPHORUS 3.2 MG/DL (2.3-4.5)
[2020-11-19 07:13] LABS: PLATELET ESTIMATE NORMAL; TOTAL CELLS COUNTED 100
[2020-11-19] MEDS: aspirin 81mg, enteric-coated 1 TAB TABLET.DR PO SCH (08:59)
[2020-11-19] MEDS: enoxaparin 40mg/0.4ml syringe SUBCUT SCH ×2 (08:59→19:51)
[2020-11-19] MEDS: cholecalciferol (vitamin D3) 1,000 unit (25mcg) tablet PO SCH (08:59)
[2020-11-19] MEDS: dexamethasone inj 5 MG in normal saline 50ml IV soln 50 ML IV SCH ×3 (08:59→19:52)
[2020-11-19] MEDS: sevelamer carbonate 0.8gm powder pkt PO SCH ×3 (08:59→17:42)
[2020-11-19] MEDS: pantoprazole 40 MG vial IV SCH (08:59)
[2020-11-19] MEDS: lactose-reduced food (Ensure Enlive) - 237ml bottle PO SCH ×4 (09:00→19:55)
[2020-11-19] MEDS: K, MAG and/or Phos replacement - Verify level? MC SCH (09:00)
[2020-11-19 12:12] LABS: C-REACTIVE PROTEIN 0.54 MG/DL (0.0-0.5)
[2020-11-19] MEDS: magnesium hydroxide 30ml (MOM) UD suspension PO PRN (13:26)
[2020-11-20] VITALS (22 sets, daily range): BP systolic 104–219; BP diastolic 54–184
[2020-11-20] MEDS: dexmedetomidine/D5W 100mL 100 ML IV SCH ×4 (04:12→23:23)
--- NOTE | 2020-11-20 06:16 | NUR ---
REPORT GIVEN TO LOU/GISELA
--- NOTE | 2020-11-20 06:18 | NUR ---
REPORT GIVEN TO MELVIN/GISELA
[2020-11-20 06:55] LABS: BASOPHILS # (AUTO) 0.1 X10'3 (0-0.2); BASOPHILS % (AUTO) 0.4 % (0-1); EOSINOPHILS # (AUTO) 0.2 X10'3 (0-0.9); HEMOGLOBIN 14.8 g/dl (12.0-16.0); LYMPHOCYTES # (AUTO) 1.8 X10'3 (1.1-4.8)
[2020-11-20 06:57] LABS: EOSINOPHILS % (AUTO) 0.7 % (0-6); HEMATOCRIT 43.4 % (35.0-45.0); LYMPHOCYTES % (AUTO) 7.4 % (21-51); MEAN CORPUSCULAR HEMOGLOBIN 28.2 PG (27.0-31.0); MEAN CORPUSCULAR VOLUME 82.8 FL (78-98); MONOCYTES # (AUTO) 1.2 X10'3 (0-0.9); MONOCYTES % (AUTO) 4.8 % (2-12); NEUTROPHILS % (AUTO) 86.7 % (42-75); PLATELET COUNT 312 X10'3 (140-440); RED BLOOD COUNT 5.24 X10'6 (4.20-5.60); RED CELL DISTRIBUTION WIDTH 13.4 % (11.5-14.5); WHITE BLOOD COUNT 24.3 X10'3 (4.5-11.0)
[2020-11-20 07:19] LABS: ALANINE AMINOTRANSFERASE 97 U/L (12-78); ALBUMIN 2.9 G/DL (3.4-5.0); ALBUMIN/GLOBULIN RATIO 0.9 (1.1-1.5); ALKALINE PHOSPHATASE 76 IU/L (46-116); ANION GAP 10 (8-16); ASPARTATE AMINO TRANSFERASE 6 U/L (10-37); BILIRUBIN,TOTAL 0.7 MG/DL (0.1-1.0); BLOOD UREA NITROGEN 25 MG/DL (7-18); BUN/CREATININE RATIO 41.7 (6.6-38.0); CALCIUM 8.4 MG/DL (8.5-10.1); CHLORIDE 100 MMOL/L (99-107); GLUCOSE 132 MG/DL (70-104); PHOSPHORUS 3.9 MG/DL (2.3-4.5); POTASSIUM 4.5 MMOL/L (3.5-5.1); SODIUM 137 MMOL/L (135-145); TOTAL PROTEIN 6.3 G/DL (6.4-8.2); eGFR > 90 ML/MIN
[2020-11-20] MEDS: K, MAG and/or Phos replacement - Verify level? MC SCH (08:00)
[2020-11-20] MEDS: lactulose 20gm/30ml cup PO SCH ×3 (08:36→19:11)
[2020-11-20] MEDS: pantoprazole 40 MG vial IV SCH (08:37)
[2020-11-20] MEDS: cholecalciferol (vitamin D3) 1,000 unit (25mcg) tablet PO SCH (08:37)
[2020-11-20] MEDS: enoxaparin 40mg/0.4ml syringe SUBCUT SCH ×2 (08:37→19:11)
[2020-11-20] MEDS: aspirin 81mg, enteric-coated 1 TAB TABLET.DR PO SCH (08:38)
[2020-11-20] MEDS: sevelamer carbonate 0.8gm powder pkt PO SCH ×3 (08:38→17:28)
[2020-11-20] MEDS: magnesium hydroxide 30ml (MOM) UD suspension PO PRN (08:39)
[2020-11-20] MEDS: lactose-reduced food (Ensure Enlive) - 237ml bottle PO SCH ×4 (08:39→20:59)
--- NOTE | 2020-11-20 10:19 | NUR ---
Reassessment: Patient's diet has been advanced to CHO controlled and pt documented with 75-100% PO intake of meals with 100% PO intake of ONS meeting estimated nutrient needs at this time. LBM 11/18 per I&O, receiving routine and PRN bowel care. No further nutrition intervention implemented at this time. Will continue to follow. Recommendations: 1) CHO controlled diet per MD; Advance to regular diet as medically indicated 2) Ensure Enlive QID per MD; consider decreasing frequency if pt continues with good PO intake of meals, can offer extra protein with meals as alternative 3) Phos binder with meals per MD 4) Routine bowel care; prior 10 days constipation currently resolving 5) Weekly scaled weights Addendum: 11/20/20 at [address] Amended: Links added.
[2020-11-20] MEDS: dexamethasone inj 4 MG in normal saline 50ml IV soln 50 ML IV SCH ×2 (12:39→20:59)
--- NOTE | 2020-11-20 18:17 | NUR ---
Patient in room ICU 2044. I have received report from Roberth HIGGINS and had the opportunity to ask questions and assume patient care.
[2020-11-20] MEDS: LORazepam 2 mg/ml vial IV PRN (19:14)
[2020-11-21] VITALS (25 sets, daily range): BP systolic 99–190; BP diastolic 63–167
[2020-11-21] MEDS: lactulose 20gm/30ml cup PO SCH ×4 (01:19→20:44)
--- NOTE | 2020-11-21 06:17 | NUR ---
Problems reprioritized. Patient report given, questions answered & plan of care reviewed with Dolly HIGGINS.
[2020-11-21 07:22] LABS: BASOPHILS # (AUTO) 0.1 X10'3 (0-0.2); BASOPHILS % (AUTO) 0.4 % (0-1); EOSINOPHILS # (AUTO) 0.3 X10'3 (0-0.9); EOSINOPHILS % (AUTO) 1.1 % (0-6); HEMATOCRIT 44.1 % (35.0-45.0); LYMPHOCYTES # (AUTO) 1.8 X10'3 (1.1-4.8); MEAN CORPUSCULAR HEMOGLOBIN 28.3 PG (27.0-31.0); MEAN CORPUSCULAR HGB CONC 33.9 g/dL (33.0-36.5); MEAN CORPUSCULAR VOLUME 83.4 FL (78-98); NEUTROPHILS # (AUTO) 22.2 X10'3 (1.8-7.7); NEUTROPHILS % (AUTO) 87.5 % (42-75); PLATELET COUNT 256 X10'3 (140-440); RED BLOOD COUNT 5.29 X10'6 (4.20-5.60); RED CELL DISTRIBUTION WIDTH 13.4 % (11.5-14.5)
[2020-11-21 07:27] LABS: WHITE BLOOD COUNT 25.3 X10'3 (4.5-11.0)
[2020-11-21 07:29] LABS: ALANINE AMINOTRANSFERASE 71 U/L (12-78); ALBUMIN 2.9 G/DL (3.4-5.0); ALBUMIN/GLOBULIN RATIO 0.9 (1.1-1.5); ALKALINE PHOSPHATASE 73 IU/L (46-116); ANION GAP 12 (8-16); ASPARTATE AMINO TRANSFERASE 13 U/L (10-37); BILIRUBIN,TOTAL 0.6 MG/DL (0.1-1.0); BLOOD UREA NITROGEN 23 MG/DL (7-18); BUN/CREATININE RATIO 35.9 (6.6-38.0); CALCIUM 8.5 MG/DL (8.5-10.1); CHLORIDE 104 MMOL/L (99-107); CREATININE 0.64 MG/DL (0.40-0.90); GLUCOSE 118 MG/DL (70-104); PHOSPHORUS 4.1 MG/DL (2.3-4.5); POTASSIUM 4.4 MMOL/L (3.5-5.1); SODIUM 141 MMOL/L (135-145); TOTAL CARBON DIOXIDE 25.4 MMOL/L (24-32); eGFR > 90 ML/MIN
[2020-11-21] MEDS: K, MAG and/or Phos replacement - Verify level? MC SCH (08:00)
[2020-11-21] MEDS: enoxaparin 40mg/0.4ml syringe SUBCUT SCH ×2 (08:00→20:36)
[2020-11-21] MEDS: lactose-reduced food (Ensure Enlive) - 237ml bottle PO SCH ×4 (08:00→20:36)
[2020-11-21] MEDS: sevelamer carbonate 0.8gm powder pkt PO SCH ×3 (08:30→17:30)
[2020-11-21] MEDS: dexmedetomidine/D5W 100mL 100 ML IV SCH ×3 (08:40→23:08)
[2020-11-21] MEDS: LORazepam 2 mg/ml vial IV PRN ×3 (08:47→20:44)
[2020-11-21] MEDS: aspirin 81mg, enteric-coated 1 TAB TABLET.DR PO SCH (08:47)
[2020-11-21] MEDS: pantoprazole 40mg Tablet.DR PO SCH (08:47)
[2020-11-21] MEDS: cholecalciferol (vitamin D3) 1,000 unit (25mcg) tablet PO SCH (08:47)
[2020-11-21 09:07] LABS: TOTAL CELLS COUNTED 100
[2020-11-21 09:09] LABS: TOXIC GRANULATION 1+; TOXIC VACUOLATION 1+
[2020-11-21 09:10] LABS: LARGE PLATELETS FEW; PLATELET ESTIMATE NORMAL
[2020-11-21 09:13] LABS: SMUDGE CELLS 1+
[2020-11-21] MEDS: LORazepam 1 MG tablet PO PRN ×3 (11:58→16:53)
[2020-11-21] MEDS: diazepam 5mg tablet PO SCH ×3 (14:34→23:08)
[2020-11-21] MEDS: dexamethasone inj 4 MG in normal saline 50ml IV soln 50 ML IV SCH ×3 (16:00→20:35)
[2020-11-21] MEDS: cloNIDine 0.1 mg tablet PO SCH ×2 (16:04→20:35)
--- NOTE | 2020-11-21 18:10 | NUR ---
Patient in room ICU 2044. I have received report from Dolly HIGGINS and had the opportunity to ask questions and assume patient care.
[2020-11-22] VITALS (21 sets, daily range): BP systolic 112–152; BP diastolic 50–91
[2020-11-22] MEDS: lactulose 20gm/30ml cup PO SCH ×4 (02:00→19:19)
[2020-11-22] MEDS: diazepam 5mg tablet PO SCH ×7 (04:00→23:40)
--- NOTE | 2020-11-22 06:28 | NUR ---
Problems reprioritized. Patient report given, questions answered & plan of care reviewed with Tracey HIGGINS.
[2020-11-22 06:31] LABS: BASOPHILS # (AUTO) 0.2 X10'3 (0-0.2); BASOPHILS % (AUTO) 0.9 % (0-1); EOSINOPHILS # (AUTO) 0.1 X10'3 (0-0.9); EOSINOPHILS % (AUTO) 0.7 % (0-6); HEMATOCRIT 46.3 % (35.0-45.0); HEMOGLOBIN 15.6 g/dl (12.0-16.0); LYMPHOCYTES # (AUTO) 1.8 X10'3 (1.1-4.8); LYMPHOCYTES % (AUTO) 9.2 % (21-51); MEAN CORPUSCULAR HEMOGLOBIN 28.5 PG (27.0-31.0); MEAN CORPUSCULAR HGB CONC 33.7 g/dL (33.0-36.5); MEAN CORPUSCULAR VOLUME 84.6 FL (78-98); MEAN PLATELET VOLUME 9.8 FL (7.4-10.4); MONOCYTES # (AUTO) 0.5 X10'3 (0-0.9); MONOCYTES % (AUTO) 2.5 % (2-12); NEUTROPHILS # (AUTO) 16.5 X10'3 (1.8-7.7); NEUTROPHILS % (AUTO) 86.7 % (42-75); PLATELET COUNT 269 X10'3 (140-440); RED BLOOD COUNT 5.48 X10'6 (4.20-5.60); RED CELL DISTRIBUTION WIDTH 13.9 % (11.5-14.5)
[2020-11-22] MEDS: cholecalciferol (vitamin D3) 1,000 unit (25mcg) tablet PO SCH (07:20)
[2020-11-22] MEDS: aspirin 81mg, enteric-coated 1 TAB TABLET.DR PO SCH (07:20)
[2020-11-22] MEDS: dexamethasone inj 4 MG in normal saline 50ml IV soln 50 ML IV SCH ×2 (07:20→15:01)
[2020-11-22] MEDS: pantoprazole 40mg Tablet.DR PO SCH (07:20)
[2020-11-22] MEDS: enoxaparin 40mg/0.4ml syringe SUBCUT SCH ×2 (07:21→19:20)
[2020-11-22 07:28] LABS: UA COLLECTION TYPE NON-SPECIFIED
[2020-11-22 07:29] LABS: CLARITY,URINE SLIGHTLY CLOUDY (Clear); COLOR,URINE YELLOW (Yellow); GLUCOSE, URINE Negative (Neg); PROTEIN,URINE Trace mg/dl (Neg)
[2020-11-22 07:30] LABS: KETONES,URINE Negative (Neg); LEUKOCYTE ESTERASE ,URINE NEGATIVE (Neg); NITRITES, URINE NEGATIVE (Neg); OCCULT BLOOD,URINE SMALL (Neg); UROBILINOGEN,URINE 0.2 E.U/dL (0.2-1.0)
[2020-11-22 07:38] LABS: BACTERIA,URINE NONE SEEN /HPF (Neg); RBC,URINE 20-50 /HPF (0-2); SQUAMOUS EPITHELIAL CELL,UR NONE SEEN /LPF (FEW); WBC,URINE NONE SEEN /HPF (0-4)
[2020-11-22 07:39] LABS: CAL OXALATE CRYSTALS FEW /HPF (NEGATIVE)
[2020-11-22 07:48] LABS: ALANINE AMINOTRANSFERASE 89 U/L (12-78); ALBUMIN/GLOBULIN RATIO 0.9 (1.1-1.5); ALKALINE PHOSPHATASE 72 IU/L (46-116); ANION GAP 15 (8-16); ASPARTATE AMINO TRANSFERASE 23 U/L (10-37); BILIRUBIN,TOTAL 0.8 MG/DL (0.1-1.0); BLOOD UREA NITROGEN 32 MG/DL (7-18); BUN/CREATININE RATIO 48.5 (6.6-38.0); CALCIUM 8.8 MG/DL (8.5-10.1); CHLORIDE 105 MMOL/L (99-107); CREATININE 0.66 MG/DL (0.40-0.90); GLUCOSE 119 MG/DL (70-104); PHOSPHORUS 6.8 MG/DL (2.3-4.5); SODIUM 138 MMOL/L (135-145); TOTAL CARBON DIOXIDE 18.2 MMOL/L (24-32); TOTAL PROTEIN 6.5 G/DL (6.4-8.2); eGFR > 90 ML/MIN
[2020-11-22 07:49] LABS: POTASSIUM 4.9 MMOL/L (3.5-5.1)
[2020-11-22] MEDS: cloNIDine 0.1 mg tablet PO SCH ×4 (08:00→19:20)
[2020-11-22] MEDS: K, MAG and/or Phos replacement - Verify level? MC SCH (08:06)
[2020-11-22] MEDS: lactose-reduced food (Ensure Enlive) - 237ml bottle PO SCH ×4 (08:06→20:00)
[2020-11-22] MEDS: sevelamer carbonate 0.8gm powder pkt PO SCH ×3 (08:09→17:56)
[2020-11-22] MEDS: LORazepam 2 mg/ml vial IV PRN ×2 (08:47→12:30)
[2020-11-22] MEDS: furosemide 40mg/4ml inj IV SCH (13:10)
[2020-11-22] MEDS: HYDROmorphone 1 mg/ml syringe IV PRN ×2 (14:55→16:05)
--- NOTE | 2020-11-22 15:12 | NUR ---
Lactic acid 4.8, value given to , received no new orders.
--- NOTE | 2020-11-22 18:25 | NUR ---
Patient in room ICU 2044. I have received report from Tracey HIGGINS and had the opportunity to ask questions and assume patient care.
[2020-11-22] MEDS: dexamethasone inj 5 MG in normal saline 50ml IV soln 50 ML IV SCH (19:19)
--- NOTE | 2020-11-22 19:37 | NUR ---
patient's scanner in room not working. no AIDAN available. So HS meds not scanned in but were verified with 2 patient identifiers.
[2020-11-23] VITALS (24 sets, daily range): BP systolic 97–173; BP diastolic 50–109
[2020-11-23] MEDS: dexmedetomidine/D5W 100mL 100 ML IV SCH ×3 (02:33→18:51)
[2020-11-23] MEDS: lactulose 20gm/30ml cup PO SCH ×4 (02:33→20:07)
[2020-11-23] MEDS: diazepam 5mg tablet PO SCH ×5 (04:06→20:07)
[2020-11-23] MEDS: HYDROmorphone 1 mg/ml syringe IV PRN (04:11)
[2020-11-23 06:17] LABS: MEAN CORPUSCULAR HEMOGLOBIN 28.2 PG (27.0-31.0)
--- NOTE | 2020-11-23 06:21 | NUR ---
Problems reprioritized. Patient report given, questions answered & plan of care reviewed with
[2020-11-23 06:22] LABS: BASOPHILS # (AUTO) 0.1 X10'3 (0-0.2); BASOPHILS % (AUTO) 0.5 % (0-1); EOSINOPHILS # (AUTO) 0.1 X10'3 (0-0.9); EOSINOPHILS % (AUTO) 0.4 % (0-6); HEMATOCRIT 42.6 % (35.0-45.0); HEMOGLOBIN 14.4 g/dl (12.0-16.0); LYMPHOCYTES # (AUTO) 1.9 X10'3 (1.1-4.8); LYMPHOCYTES % (AUTO) 8.2 % (21-51); MEAN CORPUSCULAR HGB CONC 33.7 g/dL (33.0-36.5); MEAN CORPUSCULAR VOLUME 83.7 FL (78-98); MEAN PLATELET VOLUME 10.1 FL (7.4-10.4); MONOCYTES # (AUTO) 0.9 X10'3 (0-0.9); MONOCYTES % (AUTO) 4.1 % (2-12); NEUTROPHILS # (AUTO) 19.9 X10'3 (1.8-7.7); NEUTROPHILS % (AUTO) 86.8 % (42-75); PLATELET COUNT 254 X10'3 (140-440); RED CELL DISTRIBUTION WIDTH 13.5 % (11.5-14.5); WHITE BLOOD COUNT 22.9 X10'3 (4.5-11.0)
--- NOTE | 2020-11-23 06:30 | NUR ---
Received report from GISELA Noguera
[2020-11-23 06:52] LABS: D-DIMER < 0.19 MG/L FEU (0-0.50)
[2020-11-23 07:12] LABS: ALANINE AMINOTRANSFERASE 130 U/L (12-78); ALBUMIN 2.8 G/DL (3.4-5.0); ALBUMIN/GLOBULIN RATIO 0.9 (1.1-1.5); ALKALINE PHOSPHATASE 69 IU/L (46-116); ANION GAP 12 (8-16); ASPARTATE AMINO TRANSFERASE 12 U/L (10-37); BILIRUBIN,TOTAL 0.6 MG/DL (0.1-1.0); BLOOD UREA NITROGEN 26 MG/DL (7-18); BUN/CREATININE RATIO 33.8 (6.6-38.0); CALCIUM 8.4 MG/DL (8.5-10.1); CHLORIDE 103 MMOL/L (99-107); CREATININE 0.77 MG/DL (0.40-0.90); GLUCOSE 132 MG/DL (70-104); PHOSPHORUS 4.3 MG/DL (2.3-4.5); POTASSIUM 4.1 MMOL/L (3.5-5.1); SODIUM 138 MMOL/L (135-145); TOTAL CARBON DIOXIDE 23.5 MMOL/L (24-32); eGFR 87 ML/MIN
[2020-11-23 07:13] LABS: C-REACTIVE PROTEIN < 0.05 MG/DL (0.0-0.5)
[2020-11-23 07:44] LABS: PLATELET ESTIMATE NORMAL; TOTAL CELLS COUNTED 100
[2020-11-23] MEDS: K, MAG and/or Phos replacement - Verify level? MC SCH (08:00)
[2020-11-23] MEDS: dexamethasone inj 5 MG in normal saline 50ml IV soln 50 ML IV SCH ×2 (09:27→20:07)
[2020-11-23] MEDS: LORazepam 2 mg/ml vial IV PRN (09:27)
[2020-11-23] MEDS: enoxaparin 40mg/0.4ml syringe SUBCUT SCH ×2 (09:27→20:07)
[2020-11-23] MEDS: cloNIDine 0.1 mg tablet PO SCH ×3 (09:28→20:07)
[2020-11-23] MEDS: sevelamer carbonate 0.8gm powder pkt PO SCH ×3 (09:28→17:49)
[2020-11-23] MEDS: aspirin 81mg, enteric-coated 1 TAB TABLET.DR PO SCH (09:28)
[2020-11-23] MEDS: pantoprazole 40mg Tablet.DR PO SCH (09:29)
[2020-11-23] MEDS: furosemide 40mg/4ml inj IV SCH (09:29)
[2020-11-23] MEDS: lactose-reduced food (Ensure Enlive) - 237ml bottle PO SCH ×4 (09:29→21:00)
[2020-11-23] MEDS: cholecalciferol (vitamin D3) 1,000 unit (25mcg) tablet PO SCH (09:29)
--- NOTE | 2020-11-23 18:17 | NUR ---
Report given to GISELA Wood
--- NOTE | 2020-11-23 18:25 | NUR ---
Patient in room ICU 2044. I have received report from Mariah HIGGINS and had the opportunity to ask questions and assume patient care.
--- NOTE | 2020-11-23 22:00 | NUR ---
Problems reprioritized. Patient report given, questions answered & plan of care reviewed with Nicolle HIGGINS.
[2020-11-24] VITALS (24 sets, daily range): BP systolic 101–145; BP diastolic 49–79
[2020-11-24] MEDS: dexmedetomidine/D5W 100mL 100 ML IV SCH ×3 (00:08→15:41)
[2020-11-24] MEDS: lactulose 20gm/30ml cup PO SCH ×6 (02:00→20:00)
[2020-11-24] MEDS: diazepam 5mg tablet PO SCH ×6 (05:35→20:28)
[2020-11-24 05:54] LABS: BASOPHILS # (AUTO) 0.1 X10'3 (0-0.2); EOSINOPHILS # (AUTO) 0.2 X10'3 (0-0.9); LYMPHOCYTES # (AUTO) 1.9 X10'3 (1.1-4.8); MEAN CORPUSCULAR HEMOGLOBIN 27.7 PG (27.0-31.0)
[2020-11-24 05:55] LABS: BASOPHILS % (AUTO) 0.3 % (0-1); EOSINOPHILS % (AUTO) 1.1 % (0-6); HEMOGLOBIN 14.9 g/dl (12.0-16.0); LYMPHOCYTES % (AUTO) 9.7 % (21-51); MEAN PLATELET VOLUME 9.6 FL (7.4-10.4); MONOCYTES # (AUTO) 1.1 X10'3 (0-0.9); MONOCYTES % (AUTO) 5.4 % (2-12); NEUTROPHILS # (AUTO) 16.4 X10'3 (1.8-7.7); NEUTROPHILS % (AUTO) 83.5 % (42-75); PLATELET COUNT 212 X10'3 (140-440); RED BLOOD COUNT 5.36 X10'6 (4.20-5.60); RED CELL DISTRIBUTION WIDTH 13.5 % (11.5-14.5); WHITE BLOOD COUNT 19.7 X10'3 (4.5-11.0)
[2020-11-24 06:12] LABS: ALANINE AMINOTRANSFERASE 89 U/L (12-78); ALBUMIN 2.9 G/DL (3.4-5.0); ALKALINE PHOSPHATASE 61 IU/L (46-116); ANION GAP 8 (8-16); ASPARTATE AMINO TRANSFERASE 7 U/L (10-37); BILIRUBIN,TOTAL 0.5 MG/DL (0.1-1.0); BLOOD UREA NITROGEN 25 MG/DL (7-18); BUN/CREATININE RATIO 37.9 (6.6-38.0); CALCIUM 8.3 MG/DL (8.5-10.1); CHLORIDE 104 MMOL/L (99-107); CREATININE 0.66 MG/DL (0.40-0.90); GLUCOSE 136 MG/DL (70-104); PHOSPHORUS 4.3 MG/DL (2.3-4.5); POTASSIUM 4.3 MMOL/L (3.5-5.1); SODIUM 138 MMOL/L (135-145); TOTAL PROTEIN 5.9 G/DL (6.4-8.2); eGFR > 90 ML/MIN
[2020-11-24 06:14] LABS: D-DIMER < 0.19 MG/L FEU (0-0.50)
[2020-11-24 06:15] LABS: C-REACTIVE PROTEIN < 0.05 MG/DL (0.0-0.5)
[2020-11-24] MEDS: furosemide 40mg/4ml inj IV SCH (07:47)
[2020-11-24] MEDS: dexamethasone inj 5 MG in normal saline 50ml IV soln 50 ML IV SCH ×2 (07:47→20:29)
[2020-11-24] MEDS: cloNIDine 0.1 mg tablet PO SCH ×3 (07:48→21:00)
[2020-11-24] MEDS: enoxaparin 40mg/0.4ml syringe SUBCUT SCH ×2 (07:48→20:28)
[2020-11-24] MEDS: aspirin 81mg, enteric-coated 1 TAB TABLET.DR PO SCH (07:48)
[2020-11-24] MEDS: cholecalciferol (vitamin D3) 1,000 unit (25mcg) tablet PO SCH (07:48)
[2020-11-24] MEDS: K, MAG and/or Phos replacement - Verify level? MC SCH (08:00)
[2020-11-24] MEDS ORDERED: NUT.TX.IMPAIRED DIGEST FXN (Ensure Clear) 237 ML PO SCH (08:00)
[2020-11-24] MEDS: sevelamer carbonate 0.8gm powder pkt PO SCH ×3 (08:39→20:19)
[2020-11-24] MEDS: magnesium hydroxide 30ml (MOM) UD suspension PO PRN (08:40)
--- NOTE | 2020-11-24 11:17 | NUR ---
pt out of bed to chair with assist of one. pt desats to the upper 70's with activity and has a slow recovery
[2020-11-24] MEDS ORDERED: mineral oil 133ml enema RC PRN (14:00)
[2020-11-24] MEDS: docusate sod 100mg capsule PO SCH (20:28)
[2020-11-25] VITALS (24 sets, daily range): BP systolic 95–133; BP diastolic 52–78
[2020-11-25] MEDS: diazepam 5mg tablet PO SCH ×7 (00:05→23:59)
[2020-11-25] MEDS: lactulose 20gm/30ml cup PO SCH ×4 (02:00→19:18)
[2020-11-25] MEDS: Melatonin 3mg tablet PO PRN ×2 (03:35→19:15)
[2020-11-25] MEDS: dexmedetomidine/D5W 100mL 100 ML IV SCH ×3 (04:58→21:56)
[2020-11-25 06:52] LABS: EOSINOPHILS # (AUTO) 0.2 X10'3 (0-0.9); MEAN CORPUSCULAR HEMOGLOBIN 28.3 PG (27.0-31.0); MEAN PLATELET VOLUME 9.4 FL (7.4-10.4); RED BLOOD COUNT 5.29 X10'6 (4.20-5.60)
[2020-11-25 06:55] LABS: BASOPHILS % (AUTO) 0.3 % (0-1); HEMATOCRIT 44.5 % (35.0-45.0); LYMPHOCYTES # (AUTO) 1.9 X10'3 (1.1-4.8); LYMPHOCYTES % (AUTO) 11.6 % (21-51); MEAN CORPUSCULAR HGB CONC 33.6 g/dL (33.0-36.5); MEAN CORPUSCULAR VOLUME 84.1 FL (78-98); MONOCYTES # (AUTO) 0.6 X10'3 (0-0.9); MONOCYTES % (AUTO) 3.9 % (2-12); NEUTROPHILS # (AUTO) 13.8 X10'3 (1.8-7.7); NEUTROPHILS % (AUTO) 83.2 % (42-75); PLATELET COUNT 209 X10'3 (140-440); RED CELL DISTRIBUTION WIDTH 13.9 % (11.5-14.5); WHITE BLOOD COUNT 16.5 X10'3 (4.5-11.0)
[2020-11-25 07:05] LABS: D-DIMER < 0.19 MG/L FEU (0-0.50)
[2020-11-25 07:19] LABS: ALANINE AMINOTRANSFERASE 67 U/L (12-78); ALBUMIN 2.9 G/DL (3.4-5.0); ALBUMIN/GLOBULIN RATIO 0.9 (1.1-1.5); ALKALINE PHOSPHATASE 60 IU/L (46-116); ANION GAP 9 (8-16); ASPARTATE AMINO TRANSFERASE 7 U/L (10-37); BILIRUBIN,TOTAL 0.6 MG/DL (0.1-1.0); BLOOD UREA NITROGEN 27 MG/DL (7-18); BUN/CREATININE RATIO 38.6 (6.6-38.0); CALCIUM 8.2 MG/DL (8.5-10.1); CHLORIDE 104 MMOL/L (99-107); GLUCOSE 121 MG/DL (70-104); PHOSPHORUS 4.3 MG/DL (2.3-4.5); POTASSIUM 4.2 MMOL/L (3.5-5.1); SODIUM 140 MMOL/L (135-145); TOTAL CARBON DIOXIDE 26.9 MMOL/L (24-32); eGFR > 90 ML/MIN
[2020-11-25 07:21] LABS: C-REACTIVE PROTEIN < 0.05 MG/DL (0.0-0.5)
[2020-11-25] MEDS: enoxaparin 40mg/0.4ml syringe SUBCUT SCH ×2 (08:05→19:15)
[2020-11-25] MEDS: cloNIDine 0.1 mg tablet PO SCH ×3 (08:05→19:16)
[2020-11-25] MEDS: cholecalciferol (vitamin D3) 1,000 unit (25mcg) tablet PO SCH (08:06)
[2020-11-25] MEDS: furosemide 40mg/4ml inj IV SCH (08:09)
[2020-11-25] MEDS: aspirin 81mg, enteric-coated 1 TAB TABLET.DR PO SCH (08:10)
[2020-11-25] MEDS: docusate sod 100mg capsule PO SCH ×2 (08:10→19:16)
[2020-11-25] MEDS: montelukast 10mg tablet PO SCH (08:10)
[2020-11-25] MEDS: sevelamer carbonate 0.8gm powder pkt PO SCH ×3 (08:11→17:19)
[2020-11-25] MEDS: K, MAG and/or Phos replacement - Verify level? MC SCH (08:11)
[2020-11-25] MEDS: ESCITALOPRAM OXALATE 5 MG TABLET PO SCH (08:15)
[2020-11-25] MEDS: dexamethasone inj 5 MG in normal saline 50ml IV soln 50 ML IV SCH ×2 (09:21→19:16)
[2020-11-25] MEDS: LORazepam 2 mg/ml vial IV PRN ×2 (10:02→23:59)
--- NOTE | 2020-11-25 11:54 | NUR ---
Reassessment: Pt continues w/ feelings of anxiety though has mostly 100% intake on CCHO diet meeting needs. ONS has been d/c as pt is meeting est nutrient needs at this time. Communicated recommendation to Automatic I Threading Machine Feeder at rounds to advance diet to Regular has pt has no hx of DM and BG is controlled. LBM 11/24. Will continue to monitor. Recommendations: 1) CHO controlled diet per MD; Advance to regular diet as medically indicated 2) Phos binder with meals per MD 3) Routine bowel care; prior 10 days constipation currently resolving 4) Weekly scaled weights Addendum: 11/25/20 at [address] Amended: Links added.
[2020-11-25] MEDS: HYDROmorphone 1 mg/ml syringe IV PRN (20:43)
[2020-11-26] VITALS (16 sets, daily range): BP systolic 126–169; BP diastolic 76–97
[2020-11-26] MEDS: lactulose 20gm/30ml cup PO SCH ×4 (02:00→20:37)
[2020-11-26] MEDS: diazepam 5mg tablet PO SCH ×5 (05:44→20:40)
--- NOTE | 2020-11-26 06:22 | NUR ---
Bedside shift report given to oncoming GISELA Beckett.
[2020-11-26] MEDS: dexmedetomidine/D5W 100mL 100 ML IV SCH (06:25)
[2020-11-26] MEDS ORDERED: dexamethasone inj 4 MG in normal saline 50ml IV soln 50 ML IV SCH ×4 (08:00)
[2020-11-26] MEDS ORDERED: dexamethasone sod phosphate 4mg/ml inj. IV SCH (08:00)
[2020-11-26] MEDS: K, MAG and/or Phos replacement - Verify level? MC SCH (08:00)
[2020-11-26] MEDS: furosemide 40mg/4ml inj IV SCH (08:28)
[2020-11-26] MEDS: enoxaparin 40mg/0.4ml syringe SUBCUT SCH ×2 (08:28→20:41)
[2020-11-26] MEDS: montelukast 10mg tablet PO SCH (08:28)
[2020-11-26] MEDS: aspirin 81mg, enteric-coated 1 TAB TABLET.DR PO SCH (08:28)
[2020-11-26] MEDS: cloNIDine 0.1 mg tablet PO SCH ×3 (08:28→22:51)
[2020-11-26] MEDS: ESCITALOPRAM OXALATE 5 MG TABLET PO SCH (08:29)
[2020-11-26] MEDS: cholecalciferol (vitamin D3) 1,000 unit (25mcg) tablet PO SCH (08:29)
[2020-11-26] MEDS: sevelamer carbonate 0.8gm powder pkt PO SCH ×3 (08:29→16:24)
[2020-11-26] MEDS: docusate sod 100mg capsule PO SCH ×2 (08:30→20:39)
[2020-11-26 08:46] LABS: BASOPHILS # (AUTO) 0.1 X10'3 (0-0.2); BASOPHILS % (AUTO) 0.7 % (0-1); EOSINOPHILS # (AUTO) 0.2 X10'3 (0-0.9); EOSINOPHILS % (AUTO) 1.3 % (0-6); HEMATOCRIT 46.2 % (35.0-45.0); HEMOGLOBIN 15.2 g/dl (12.0-16.0); LYMPHOCYTES # (AUTO) 2.7 X10'3 (1.1-4.8); LYMPHOCYTES % (AUTO) 15.6 % (21-51); MEAN CORPUSCULAR HEMOGLOBIN 28.1 PG (27.0-31.0); MEAN CORPUSCULAR HGB CONC 32.9 g/dL (33.0-36.5); MEAN CORPUSCULAR VOLUME 85.4 FL (78-98); MONOCYTES # (AUTO) 0.8 X10'3 (0-0.9); MONOCYTES % (AUTO) 4.7 % (2-12); NEUTROPHILS # (AUTO) 13.5 X10'3 (1.8-7.7); NEUTROPHILS % (AUTO) 77.7 % (42-75); PLATELET COUNT 222 X10'3 (140-440); RED BLOOD COUNT 5.41 X10'6 (4.20-5.60); RED CELL DISTRIBUTION WIDTH 14.4 % (11.5-14.5); WHITE BLOOD COUNT 17.4 X10'3 (4.5-11.0)
--- NOTE | 2020-11-26 09:33 | NUR ---
SBP in the 70/80s; patient remains alert with some dizziness from transfer in/out of bed. Tristan PATTERSON notified; okay to administer up to x2 Albumin 250ml. Addendum: 11/26/20 at 0934 by Sujit Mccloud RN Wrong patient; disregard note please.
--- NOTE | 2020-11-26 10:31 | NUR ---
Dr. Cotton called and updated on x2 albumin and use of Levophed; orders to recheck hgb this afternoon. Patient's SBP in . Addendum: 11/26/20 at 1032 by Sujit Mccloud RN Wrong patient; disregard note pleases.
[2020-11-26 10:47] LABS: GLUCOSE 82 MG/DL (70-104); POTASSIUM 3.8 MMOL/L (3.5-5.1); SODIUM 142 MMOL/L (135-145)
[2020-11-26 10:48] LABS: ANION GAP 13 (8-16); BILIRUBIN,TOTAL 0.8 MG/DL (0.1-1.0); BLOOD UREA NITROGEN 26 MG/DL (7-18); BUN/CREATININE RATIO 36.6 (6.6-38.0); C-REACTIVE PROTEIN < 0.05 MG/DL (0.0-0.5); CALCIUM 8.4 MG/DL (8.5-10.1); CHLORIDE 104 MMOL/L (99-107); CREATININE 0.71 MG/DL (0.40-0.90); PHOSPHORUS 4.2 MG/DL (2.3-4.5); TOTAL CARBON DIOXIDE 25.5 MMOL/L (24-32); eGFR > 90 ML/MIN
[2020-11-26 10:49] LABS: ALANINE AMINOTRANSFERASE 65 U/L (12-78); ALBUMIN 3.3 G/DL (3.4-5.0); ALBUMIN/GLOBULIN RATIO 1.1 (1.1-1.5); ALKALINE PHOSPHATASE 50 IU/L (46-116); ASPARTATE AMINO TRANSFERASE 9 U/L (10-37); TOTAL PROTEIN 6.4 G/DL (6.4-8.2)
[2020-11-26 10:58] LABS: D-DIMER < 0.19 MG/L FEU (0-0.50)
[2020-11-26] MEDS: Melatonin 3mg tablet PO PRN (22:50)
[2020-11-27] MEDS: diazepam 5mg tablet PO SCH ×6 (00:54→19:58)
[2020-11-27] MEDS: lactulose 20gm/30ml cup PO SCH ×4 (02:00→19:57)
[2020-11-27 07:16] VITALS: BP 115/66
[2020-11-27] MEDS: montelukast 10mg tablet PO SCH (09:10)
[2020-11-27] MEDS: cholecalciferol (vitamin D3) 1,000 unit (25mcg) tablet PO SCH (09:10)
[2020-11-27] MEDS: docusate sod 100mg capsule PO SCH ×2 (09:11→19:58)
[2020-11-27] MEDS: aspirin 81mg, enteric-coated 1 TAB TABLET.DR PO SCH (09:12)
[2020-11-27] MEDS: cloNIDine 0.1 mg tablet PO SCH ×3 (09:12→20:03)
[2020-11-27] MEDS: furosemide 40mg/4ml inj IV SCH (09:13)
[2020-11-27] MEDS: dexamethasone inj 6 MG in normal saline 50ml IV soln 50 ML IV SCH (09:13)
[2020-11-27] MEDS: enoxaparin 40mg/0.4ml syringe SUBCUT SCH ×2 (09:14→19:58)
[2020-11-27] MEDS: ESCITALOPRAM OXALATE 5 MG TABLET PO SCH (09:35)
[2020-11-27 09:57] LABS: D-DIMER < 0.19 MG/L FEU (0-0.50)
[2020-11-27 10:11] LABS: PHOSPHORUS 3.7 MG/DL (2.3-4.5)
[2020-11-27 10:39] LABS: C-REACTIVE PROTEIN < 0.05 MG/DL (0.0-0.5)
[2020-11-27 11:00] VITALS: BP 123/73
[2020-11-27] MEDS: sevelamer carbonate 0.8gm powder pkt PO SCH ×2 (12:30→17:32)
[2020-11-27] MEDS: acetaminophen 325mg tablet PO PRN (13:46)
[2020-11-27 15:00] VITALS: BP 114/77
[2020-11-27 18:00] VITALS: BP 116/59
[2020-11-27 19:50] VITALS: BP 115/79
[2020-11-27] MEDS: Melatonin 3mg tablet PO PRN (19:58)
[2020-11-27] MEDS: K, MAG and/or Phos replacement - Verify level? MC SCH (20:14)
[2020-11-27 22:00] VITALS: BP 114/67
[2020-11-28] MEDS: diazepam 5mg tablet PO SCH ×6 (01:00→22:25)
[2020-11-28] MEDS: lactulose 20gm/30ml cup PO SCH ×4 (02:24→20:00)
[2020-11-28 03:00] VITALS: BP 108/69
[2020-11-28 07:00] VITALS: BP 124/72
[2020-11-28] MEDS: K, MAG and/or Phos replacement - Verify level? MC SCH (08:00)
[2020-11-28] MEDS: ESCITALOPRAM OXALATE 5 MG TABLET PO SCH (08:04)
[2020-11-28] MEDS: cholecalciferol (vitamin D3) 1,000 unit (25mcg) tablet PO SCH (08:05)
[2020-11-28] MEDS: aspirin 81mg, enteric-coated 1 TAB TABLET.DR PO SCH (08:05)
[2020-11-28] MEDS: cloNIDine 0.1 mg tablet PO SCH ×3 (08:05→22:41)
[2020-11-28] MEDS: montelukast 10mg tablet PO SCH (08:06)
[2020-11-28] MEDS: docusate sod 100mg capsule PO SCH ×2 (08:06→22:25)
[2020-11-28] MEDS: sevelamer carbonate 0.8gm powder pkt PO SCH ×3 (08:07→17:30)
[2020-11-28] MEDS: acetaminophen 325mg tablet PO PRN (08:07)
[2020-11-28] MEDS: enoxaparin 40mg/0.4ml syringe SUBCUT SCH ×2 (08:08→22:26)
[2020-11-28] MEDS: furosemide 40mg/4ml inj IV SCH (08:08)
[2020-11-28] MEDS: dexamethasone inj 6 MG in normal saline 50ml IV soln 50 ML IV SCH (08:09)
[2020-11-28 11:00] VITALS: BP 139/78
[2020-11-28 11:10] LABS: D-DIMER < 0.19 MG/L FEU (0-0.50)
[2020-11-28 11:16] LABS: ALANINE AMINOTRANSFERASE 118 U/L (12-78); ALBUMIN 3.6 G/DL (3.4-5.0); ALBUMIN/GLOBULIN RATIO 1.1 (1.1-1.5); ALKALINE PHOSPHATASE 52 IU/L (46-116); ANION GAP 16 (8-16); ASPARTATE AMINO TRANSFERASE 24 U/L (10-37); BLOOD UREA NITROGEN 30 MG/DL (7-18); BUN/CREATININE RATIO 38.5 (6.6-38.0); CALCIUM 8.7 MG/DL (8.5-10.1); CHLORIDE 104 MMOL/L (99-107); CREATININE 0.78 MG/DL (0.40-0.90); GLUCOSE 114 MG/DL (70-104); SODIUM 142 MMOL/L (135-145); TOTAL CARBON DIOXIDE 21.8 MMOL/L (24-32); TOTAL PROTEIN 6.8 G/DL (6.4-8.2); eGFR 86 ML/MIN
[2020-11-28 11:19] LABS: C-REACTIVE PROTEIN < 0.05 MG/DL (0.0-0.5)
[2020-11-28] MEDS: potassium Cl 20 mEq SR tablet PO PRN ×2 (14:10→19:23)
[2020-11-28 18:00] VITALS: BP 115/70
[2020-11-28 22:00] VITALS: BP 140/81
[2020-11-29] VITALS (7 sets, daily range): BP systolic 116–156; BP diastolic 58–86
[2020-11-29] MEDS: Melatonin 3mg tablet PO PRN
[2020-11-29] MEDS: potassium Cl 20 mEq SR tablet PO PRN (00:06)
[2020-11-29] MEDS: lactulose 20gm/30ml cup PO SCH ×4 (02:00→20:00)
[2020-11-29] MEDS: diazepam 5mg tablet PO SCH ×6 (04:00→20:32)
--- NOTE | 2020-11-29 06:50 | NUR ---
VSS THROUGHOUT SHIFT. NO SIGNS OF DISTRESS NOTED. PATIENT AWARE OF PLAN OF CARE. CALL LIGHT AND PERSONAL BELONGINGS PLACED WITHIN REACH. REPORT GIVEN TO AM NURSE. INSTRUCTED TO CALL FOR ASSISTANCE.
--- NOTE | 2020-11-29 07:24 | NUR ---
RECEIVED REPORT FROM GISELA SANDOVAL
[2020-11-29] MEDS: K, MAG and/or Phos replacement - Verify level? MC SCH (08:00)
[2020-11-29] MEDS: furosemide 40mg/4ml inj IV SCH (09:30)
[2020-11-29] MEDS: dexamethasone inj 6 MG in normal saline 50ml IV soln 50 ML IV SCH (09:30)
[2020-11-29] MEDS: enoxaparin 40mg/0.4ml syringe SUBCUT SCH ×2 (09:30→20:32)
[2020-11-29] MEDS: montelukast 10mg tablet PO SCH (09:30)
[2020-11-29] MEDS: aspirin 81mg, enteric-coated 1 TAB TABLET.DR PO SCH (09:30)
[2020-11-29] MEDS: sevelamer carbonate 0.8gm powder pkt PO SCH ×3 (09:30→17:30)
[2020-11-29] MEDS: cholecalciferol (vitamin D3) 1,000 unit (25mcg) tablet PO SCH (09:30)
[2020-11-29] MEDS: cloNIDine 0.1 mg tablet PO SCH ×3 (09:30→20:33)
[2020-11-29] MEDS: ESCITALOPRAM OXALATE 5 MG TABLET PO SCH (09:30)
[2020-11-29] MEDS: docusate sod 100mg capsule PO SCH ×2 (09:30→20:32)
--- NOTE | 2020-11-29 11:41 | NUR ---
Page Sent PAGER ID: [phone] MESSAGE: JORGE [phone] RE: TREV DICKERSON [id number] WOULD YOU LIKE A REDRAW ON LABS FOR PT? HER K+ WAS 3.0 YESTERDAY, BUT HAS NOT BEEN REDRAWN THIS AM. THANK YOU!
--- NOTE | 2020-11-29 13:36 | NUR ---
Patient in room PCU 3028. I have received report from Chuckie BERNSTEIN and Kenneth BERNSTEIN and had the opportunity to ask questions and assume patient care.
--- NOTE | 2020-11-29 13:42 | NUR ---
Patient in room PCU 3028. I have received report from SN Robert and SN Aspen and had the opportunity to ask questions and assume patient care.
--- NOTE | 2020-11-29 15:44 | NUR ---
Student documentation: I have reviewed and agree with all interventions, assessments performed and documented by Roxann BERNSTEIN and Seema BERNSTEIN.
[2020-11-29 16:30] LABS: D-DIMER < 0.19 MG/L FEU (0-0.50)
--- NOTE | 2020-11-29 18:21 | NUR ---
GAVE REPORT TO GISELA SANDOVAL
[2020-11-30] MEDS: Melatonin 3mg tablet PO PRN ×2 (01:42→22:02)
[2020-11-30 02:00] VITALS: BP 112/63
[2020-11-30] MEDS: lactulose 20gm/30ml cup PO SCH ×4 (02:00→19:59)
[2020-11-30] MEDS: diazepam 5mg tablet PO SCH ×6 (04:00→19:55)
[2020-11-30 06:00] VITALS: BP 106/66
--- NOTE | 2020-11-30 06:26 | NUR ---
Patient in room PCU 3028. I have received report from Santosh HIGGINS and had the opportunity to ask questions and assume patient care.
[2020-11-30] MEDS: K, MAG and/or Phos replacement - Verify level? MC SCH (08:00)
[2020-11-30] MEDS ORDERED: dexamethasone inj 5 MG in normal saline 50ml IV soln 50 ML IV SCH (08:00)
[2020-11-30] MEDS: docusate sod 100mg capsule PO SCH ×2 (08:18→19:55)
[2020-11-30] MEDS: cloNIDine 0.1 mg tablet PO SCH ×3 (08:19→19:55)
[2020-11-30] MEDS: enoxaparin 40mg/0.4ml syringe SUBCUT SCH ×2 (08:19→19:56)
[2020-11-30] MEDS: cholecalciferol (vitamin D3) 1,000 unit (25mcg) tablet PO SCH (08:20)
[2020-11-30] MEDS: montelukast 10mg tablet PO SCH (08:20)
[2020-11-30] MEDS: furosemide 40mg/4ml inj IV SCH (08:20)
[2020-11-30] MEDS: ESCITALOPRAM OXALATE 5 MG TABLET PO SCH (08:20)
[2020-11-30] MEDS: aspirin 81mg, enteric-coated 1 TAB TABLET.DR PO SCH (08:20)
[2020-11-30] MEDS: sevelamer carbonate 0.8gm powder pkt PO SCH ×3 (08:25→16:22)
[2020-11-30 09:05] LABS: ALANINE AMINOTRANSFERASE 131 U/L (12-78); ALBUMIN 3.4 G/DL (3.4-5.0); ALBUMIN/GLOBULIN RATIO 1.3 (1.1-1.5); ALKALINE PHOSPHATASE 49 IU/L (46-116); ANION GAP 10 (8-16); ASPARTATE AMINO TRANSFERASE 23 U/L (10-37); BILIRUBIN,TOTAL 0.9 MG/DL (0.1-1.0); BLOOD UREA NITROGEN 29 MG/DL (7-18); BUN/CREATININE RATIO 44.6 (6.6-38.0); CALCIUM 8.7 MG/DL (8.5-10.1); CHLORIDE 107 MMOL/L (99-107); CREATININE 0.65 MG/DL (0.40-0.90); GLUCOSE 88 MG/DL (70-104); POTASSIUM 3.8 MMOL/L (3.5-5.1); SODIUM 142 MMOL/L (135-145); TOTAL CARBON DIOXIDE 25.3 MMOL/L (24-32); TOTAL PROTEIN 6.1 G/DL (6.4-8.2); eGFR > 90 ML/MIN
[2020-11-30 09:14] LABS: C-REACTIVE PROTEIN < 0.05 MG/DL (0.0-0.5)
[2020-11-30 10:09] LABS: D-DIMER 0.42 MG/L FEU (0-0.50)
[2020-11-30 11:00] VITALS: BP 136/76
--- NOTE | 2020-11-30 11:05 | NUR ---
paged Dr. Marmolejo PAGER ID: [phone] MESSAGE: [phone] [id number], Seema Montalvo currently on Carb controlled diet, no history of DM, sugars have all been lets that 120 in am labs, can we change diet to regular? Please advise Princess HIGGINS [phone]
--- NOTE | 2020-11-30 13:59 | NUR ---
Reassessment: Pt continues w/ feelings of anxiety though has mostly 100% intake on CCHO diet meeting needs. Communicated w/ RN to advance diet to Regular if MD agreeable as pt has no hx of DM and BG is controlled. [facility] 11/29. Will continue to monitor. Recommendations: 1) CHO controlled diet per MD; Advance to regular diet as medically indicated 2) Phos binder with meals per MD 3) Routine bowel care 4) Weekly scaled weights Addendum: 11/30/20 at [address] Amended: Links added.
[2020-11-30 15:00] VITALS: BP 116/65
[2020-11-30 18:00] VITALS: BP 119/66
--- NOTE | 2020-11-30 18:32 | NUR ---
Problems reprioritized. Patient report given, questions answered & plan of care reviewed with Srikanth HIGGINS.
[2020-11-30 22:00] VITALS: BP 114/70
[2020-12-01] MEDS: diazepam 5mg tablet PO SCH ×4 (00:12→11:31)
[2020-12-01 02:00] VITALS: BP 124/68
[2020-12-01] MEDS: lactulose 20gm/30ml cup PO SCH ×3 (02:00→13:44)
--- NOTE | 2020-12-01 06:15 | NUR ---
Patient in room PCU 3028. I have received report from Srikanth HIGGINS and had the opportunity to ask questions and assume patient care.
[2020-12-01] MEDS: K, MAG and/or Phos replacement - Verify level? MC SCH (08:00)
[2020-12-01] MEDS ORDERED: dexamethasone inj 4 MG in normal saline 50ml IV soln 50 ML IV SCH (08:00)
[2020-12-01 08:41] LABS: D-DIMER < 0.19 MG/L FEU (0-0.50)
[2020-12-01] MEDS: enoxaparin 40mg/0.4ml syringe SUBCUT SCH (09:00)
[2020-12-01] MEDS: sevelamer carbonate 0.8gm powder pkt PO SCH ×2 (09:01→12:06)
[2020-12-01] MEDS: ESCITALOPRAM OXALATE 5 MG TABLET PO SCH (09:02)
[2020-12-01] MEDS: docusate sod 100mg capsule PO SCH (09:02)
[2020-12-01] MEDS: cholecalciferol (vitamin D3) 1,000 unit (25mcg) tablet PO SCH (09:02)
[2020-12-01] MEDS: aspirin 81mg, enteric-coated 1 TAB TABLET.DR PO SCH (09:03)
[2020-12-01] MEDS: montelukast 10mg tablet PO SCH (09:03)
[2020-12-01] MEDS: cloNIDine 0.1 mg tablet PO SCH ×2 (09:03→12:08)
[2020-12-01] MEDS: furosemide 40mg/4ml inj IV SCH (09:04)
--- NOTE | 2020-12-01 09:18 | NUR ---
O2 Sat at rest on room air:88_% If below 89%: Recovery O2 Sat at rest on __2_LPM:___%:_94__% via nasal cannula (mask/nasal cannula, etc..) No further documentation is necessary. If O2 Sat did not drop below 89% on room air,ambulate patient on room air. O2 Sat while ambulating on room air:_87__% Recovery O2 Sat while ambulating on __2_LPM:_94__% No further documentation is necessary. If patient does not drop below 89% while ambulating, he/she does not qualify for home O2.
[2020-12-01] MEDS ORDERED: ASPI81TA52 PO (10:14)
[2020-12-01] MEDS ORDERED: DEXA4TAB67 PO (10:14)
[2020-12-01 11:00] VITALS: BP 108/50
--- NOTE | 2020-12-01 14:56 | NUR ---
Patient is stable and comfortable at discharge. [facility] has delivered patients oxygen for home use. Removed telemetry and PIV with cannula intact, No redness or irritation at PIV site. Gathered all patient belongings jose angel bag and gave to patient. Gave and reviewed in detail with patient, discharge information and discharge education. Patient and family member was able to verbalize back all discharge information and discharge education. Patient was wheeled to lobby in wheel chair by staff accompanied by family member. Patient left hospital via private car with family member.
== END 2020-12-01 15:15 | disposition home or self-care (01) | DRG 177 ==
LOC: CICU 2S 18:17 → UNDOADMIN 18:17 → CICU 2S 18:57 → ICU 2S 11-15 14:13 → PCU 3S 11-26 19:00
PROVIDERS: ADMIT Surgery; ATTEND Internal Medicine Critical Care Medicine
PROC: 5A09557 Assistance with Respiratory Ventilation, Greater than 96 Consecutive Hours, Continuous Positive Airway Pressure (ICD-10-PCS; 2020-11-08)
PROC: 5A0935A Assistance with Respiratory Ventilation, Less than 24 Consecutive Hours, High Flow/Velocity Cannula (ICD-10-PCS; 2020-11-14)
PROC: XW033H5 Introduction of Tocilizumab into Peripheral Vein, Percutaneous Approach, New Technology Group 5 (ICD-10-PCS; principal; 2020-11-15)
PROC: 5A09457 Assistance with Respiratory Ventilation, 24-96 Consecutive Hours, Continuous Positive Airway Pressure (ICD-10-PCS; 2020-11-15)
PROC: 5A0955A Assistance with Respiratory Ventilation, Greater than 96 Consecutive Hours, High Flow/Velocity Cannula (ICD-10-PCS; 2020-11-16)
DX: U07.1 COVID-19 (principal); J12.82 Pneumonia due to coronavirus disease 2019; J80 Acute respiratory distress syndrome; Z68.41 Body mass index [BMI] 40.0-44.9, adult; E46 Unspecified protein-calorie malnutrition; E83.39 Other disorders of phosphorus metabolism; R03.0 Elevated blood-pressure reading, without diagnosis of hypertension; D72.810 Lymphocytopenia; D75.839 Thrombocytosis, unspecified; E66.01 Morbid (severe) obesity due to excess calories; F41.9 Anxiety disorder, unspecified; K59.00 Constipation, unspecified; Z79.899 Other long term (current) drug therapy; E87.6 Hypokalemia
CPT/HCPCS: 36415; 36600; 71045; 80053; 81001; 82803; 83605; 83735; 83880; 84100; 85007; 85018; 85025; 85379; 86140; 87040; 87081; 94660; 94760; 97110; 97112; 97116; 97161; 97530; C9113; G0378; J1100; J1170; J1650; J1940; J2060; J2270; J2405; J3262